=== PATIENT | female | born 1965 | race Caucasian/White ===

== ENCOUNTER → 2021-03-25 12:09 | Outpatient (BNVA) | payer SELFPAY | PROVIDERS: PCP Family Medicine; Visit Provider Nurse Practitioner Family | DX: R41.3 Other amnesia (principal); E66.9 Obesity, unspecified; Z78.0 Asymptomatic menopausal state; F41.0 Panic disorder [episodic paroxysmal anxiety]; F41.9 Anxiety disorder, unspecified; M32.9 Systemic lupus erythematosus, unspecified; B94.8 Sequelae of other specified infectious and parasitic diseases | CPT/HCPCS: 80053; 80061; 82306; 82607; 82746; 83735; 84100; 84443; 85651; 86140 ==

== ENCOUNTER → 2021-07-30 12:02 | Outpatient (BNVA) | payer OTHER, SELFPAY | PROVIDERS: PCP Family Medicine; Visit Provider Nurse Practitioner Family | DX: R41.3 Other amnesia (principal); R70.0 Elevated erythrocyte sedimentation rate; E66.9 Obesity, unspecified; E55.9 Vitamin D deficiency, unspecified; F41.0 Panic disorder [episodic paroxysmal anxiety]; G89.29 Other chronic pain; R79.89 Other specified abnormal findings of blood chemistry; M54.32 Sciatica, left side | CPT/HCPCS: 80053; 80061; 82306; 82607; 83036; 84439; 84443; 84550; 85025; 85651; 86038; 86140; 86200; 86431 ==

== ENCOUNTER 2021-08-19 06:00 | Outpatient (RCR) | payer OTHER, SELFPAY | END 2021-09-07 23:59 | disposition home or self-care (01) | LOC: TPT 06:00 | PROVIDERS: PCP Family Medicine; Referring Provider Nurse Practitioner Family; Visit Provider Nurse Practitioner Family | DX: M54.9 Dorsalgia, unspecified (principal); G89.29 Other chronic pain | CPT/HCPCS: 97110; 97163 ==

== ENCOUNTER 2021-11-17 05:53 | Day surgery (SDC) | payer OTHER, SELFPAY ==
[2021-11-15 12:21] VITALS: BMI 43.9
[2021-11-17 07:00] VITALS: BP 130/85; PULSE 96; RESP 18; TEMP 36.4; O2SAT 97
[2021-11-17] MEDS: sodium chloride 0.9% 1,000 ML 30 ML IV (07:16)
--- NOTE | 2021-11-17 07:37 | ECG_ITS ---
[facility] Test Date: 2021-11-17 Pat Name: Licha Traylor Department: Room: Gender: Female Academic Records Specialist: : [id number] Requested By: Shannon Tran Order Number: [id number] Blackwell MD: Phoebe Sanchez M.D. Measurements Intervals [place] Rate: 74 P: 35 MN: 138 QRS: -17 QRSD: 96 T: 58 QT: 385 QTc: 428 Interpretive Statements SINUS RHYTHM NONSPECIFIC T-WAVE ABNORMALITY No previous ECG available for comparison Electronically Signed On 11-18-2021 18:52:02 CDT by Phoebe Sanchez M.D. [email or web address]
--- NOTE | 2021-11-17 07:53 | ANES.PREANE2 ---
Pre-Anesthetic Assessment Height/Weight: Height 1.52 m Weight 102.058 kg Temp Pulse Resp BP Pulse Ox O2 Del Method 97.5 F L 96 18 130/85 97 11/17/21 07:00 11/17/21 07:00 11/17/21 07:00 11/17/21 07:00 11/17/21 07:00 11/17/21 07:00 Preop Diagnosis: diagnostic Operation Date: 11/17/21 08:00 Proposed Procedures p EGD 61880 Colonoscopy 78661,R19.7(Not Applicable) - Alvarez Kitchen MD s Colonoscopy(Not Applicable) - Alvarez Kitchen MD Familial anesthetic complications: None Was Beta Jacobo taken within 24 hours: N/A Was Clonidine taken within 24 hours: N/A Last intake: Intake Last Liquid Date 11/16/21 Last Liquid Time 18:00 Last Solid Date 11/15/21 Last Solid Time 17:00 Social No alcohol and No tobacco Exam alert, oriented x 3, clear to auscultation bilaterally and regular rate & rhythm Airway Mallampati: Class II Dentition: chipped Pulmonary None reported CV/HEM None reported None reported Hepatic None reported GI None reported Metabolic Morbid Obesity and Thyroid Disease [facility] [place] lupus Neuropsych syncopal episodes - thought by PCP to be d/t hypoglycemia and dehydration. Will obtain EKG to r/o any anemia. Anesthetic Plan ASA status: 3 Anesthesia: MAC Risk of > 500 ml blood loss (7ml/kg in children): No Medications/Allergies Home Medications Medication Instructions Recorded Confirmed Last Taken Type alprazolam 1 mg tablet 1 mg PO BID PRN anxiety #60 tabs 07/30/21 11/17/21 11/16/21 Rx gabapentin 800 mg tablet See Rx Instructions .Route 07/30/21 11/17/21 11/16/21 Rx .COMPLEX #60 tabs memantine 10 mg tablet (Namenda) 10 mg PO BID 30 days #60 tabs 07/30/21 11/17/21 11/15/21 Rx trazodone 100 mg tablet See Rx Instructions .Route 07/30/21 11/17/21 11/16/21 Rx .COMPLEX #30 tabs ergocalciferol (vitamin D2) 1,250 1,250 mcg PO .weekly #4 caps 08/06/21 11/17/21 11/12/21 Rx mcg (50,000 unit) capsule metaxalone 800 mg tablet (Skelaxin) 800 mg PO TID PRN muscle pain 30 08/19/21 11/17/21 11/16/21 Rx days #90 tabs celecoxib 200 mg capsule (Celebrex) 200 mg PO BID #60 caps 09/13/21 11/17/21 11/15/21 Rx dicyclomine 20 mg tablet 20 mg PO QID #120 tabs 09/13/21 11/17/21 11/15/21 Rx sucralfate 1 gram tablet 1 g PO DAILY 11/17/21 11/17/21 11/10/21 History Allergies Allergy/AdvReac Type Severity Reaction Status Date / Time No Known Allergies Allergy Verified 09/13/21 10:24 Current Medications Generic Name Dose Route Start Last Admin Trade Name Freq PRN Reason Stop Dose Admin Sodium Chloride 1,000 mls @ 30 mls/hr 11/17/21 06:15 11/17/21 07:16 Sodium Chloride 0.9% IV 11/18/21 06:14 30 mls/hr .Q24H TERRY Administration PFSH Anesthesia Medical History (Updated 09/13/21 @ 11:14 by Abbie Caballero MD) Anxiety COVID-19 (~09/2020) History of stroke (~01/2020) Lupus Panic attacks 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) PUD (peptic ulcer disease) Surgical History (Updated 08/31/21 @ 10:32 by Alvarez Kitchen MD) History of abdominoplasty History of History of hysterectomy History of laparoscopic cholecystectomy Family History Other CAD (coronary artery disease) Cancer Social History Smoking and tobacco status: never smoked Second hand smoke exposure: No Alcohol intake: never Lives independently: Yes Marital status: service: No Current occupational status: employed Current occupation: [employer] History of recent travel: No Current gender identity: Female Special ashanti needs: No Agree to transfusion: Yes Data Anesthesia Cardiac Studies: No Data to Display
--- NOTE | 2021-11-17 08:10 | W.PM.OPSFHP ---
Same Day Surgery H&P Indication for Procedure/HPI DATE OF PROCEDURE: November 17, 2021 CHIEF COMPLAINT/INDICATIONFOR SURGICAL PROCEDURE: EGD/colonoscopy PREOP DIAGNOSIS: diagnostic PLANNED PROCEDURE: Operation Date: 11/17/21 08:00 Proposed Procedures p EGD 49404 Colonoscopy 10333,R19.7(Not Applicable) - Alvarez Kitchen MD s Colonoscopy(Not Applicable) - Alvarez Kitchen MD Medications/Allergies* Home Medications Medication Instructions Recorded Confirmed Type sucralfate 1 gram tablet 1 g PO DAILY 11/17/21 11/17/21 History Allergies/Adverse Reactions Allergy/AdvReac Type Severity Reaction Status Date / Time No Known Allergies Allergy Verified 09/13/21 10:24 Current Medications: Generic Name Dose Route Start Last Admin Trade Name Freq PRN Reason Stop Dose Admin Sodium Chloride 1,000 mls @ 30 mls/hr 11/17/21 06:15 11/17/21 07:16 Sodium Chloride 0.9% IV 11/18/21 06:14 30 mls/hr .Q24H TERRY Administration Pertinent History/Comorbid Conditions* Medical History (Updated 09/13/21 @ 11:14 by Abbie Caballero MD) Anxiety COVID-19 (~09/2020) History of stroke (~01/2020) Lupus Panic attacks 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) PUD (peptic ulcer disease) Surgical History (Updated 08/31/21 @ 10:32 by Alvarez Kitchen MD) History of abdominoplasty History of History of hysterectomy History of laparoscopic cholecystectomy Family History (Updated 10/15/20 @ 13:37 by Julianna Rose LPN) CAD (coronary artery disease) Cancer Social History Smoking and tobacco status: never smoked Second hand smoke exposure: No Alcohol intake: never Lives independently: Yes Marital status: service: No Current occupational status: employed Current occupation: [employer] History of recent travel: No Current gender identity: Female Special ashanti needs: No Agree to transfusion: Yes Pertinent Exam Findings alert, oriented x 3 and regular rate & rhythm Recommendations Surgery/Procedure today Coding Level of Care Code Acute Dental Claims Processor for Alissa Cedillo
[2021-11-17 08:52] VITALS: BP 112/75; PULSE 82; RESP 16; TEMP 36.1; O2SAT 94
[2021-11-17 09:04] VITALS: BP 127/78; PULSE 73; RESP 16; O2SAT 98
[2021-11-17] MEDS: ondansetron 2 mg/ML SDV 2 mL 4 MG IVP (09:10)
--- NOTE | 2021-11-17 17:53 | ANE.PACU2 ---
Inpatient post-anesthesia follow up: Airway intact: Yes Vital signs: Temperature 97.0 F Pulse Rate 73 Respiratory Rate 16 Blood Pressure 127/78 Pulse Oximetry 98 Oxygen Delivery Me thod Nasal Cannula Oxygen Flow Rate 3 Fraction of Inspir ed Oxygen Hydration adequate: Yes Nausea and vomiting: No Pain level: 1 Mental status: Baseline
== END 2021-11-17 09:45 | disposition home or self-care (01) ==
PROVIDERS: PCP Family Medicine; Visit Provider Surgery
PROC: 0DJ08ZZ Inspection of Upper Intestinal Tract, Via Natural or Artificial Opening Endoscopic (ICD-10-PCS; CPT 43235; principal; 2021-11-17 08:00)
PROC: 0DJD8ZZ Inspection of Lower Intestinal Tract, Via Natural or Artificial Opening Endoscopic (ICD-10-PCS; CPT 45378; 2021-11-17 08:00)
DX: R19.7 Diarrhea, unspecified (principal); K29.50 Unspecified chronic gastritis without bleeding; K57.30 Diverticulosis of large intestine without perforation or abscess without bleeding; K64.8 Other hemorrhoids; E66.01 Morbid (severe) obesity due to excess calories; Z68.41 Body mass index [BMI] 40.0-44.9, adult; F41.9 Anxiety disorder, unspecified; Z87.11 Personal history of peptic ulcer disease; Z86.73 Personal history of transient ischemic attack (TIA), and cerebral infarction without residual deficits; Z86.16 Personal history of COVID-19
CPT/HCPCS: 43239; 45380; 82274; 83630; 87493; 87506; 88305; 88342; 93005; J2405; J2704; J7030

== ENCOUNTER → 2022-03-11 08:52 | Outpatient (BNVA) | payer OTHER, SELFPAY | PROVIDERS: PCP Family Medicine; Visit Provider Family Medicine | DX: R05.9 Cough, unspecified (principal) | CPT/HCPCS: 87400 ==

== ENCOUNTER → 2022-06-15 15:22 | Outpatient (BNVA) | payer OTHER, SELFPAY | PROVIDERS: PCP Family Medicine; Visit Provider Family Medicine | DX: N39.0 Urinary tract infection, site not specified (principal) | CPT/HCPCS: 81000 ==

== ENCOUNTER → 2022-07-14 13:23 | Outpatient (BNVA) | payer OTHER, SELFPAY | PROVIDERS: PCP Family Medicine; Visit Provider Family Medicine | DX: R10.9 Unspecified abdominal pain (principal); R19.7 Diarrhea, unspecified | CPT/HCPCS: 82274; 87177; 87209; 87493; 87506 ==

== ENCOUNTER 2022-09-23 14:01 | Emergency (ER) | payer OTHER, SELFPAY ==
[2022-09-23] VITALS (14 sets, daily range): BP systolic 112–152; BP diastolic 74–110; PULSE 60–102; RESP 11–25; TEMP 36.8; O2SAT 86–99
[2022-09-23 15:08] LABS: Add Urine Microscopic? NO; Charge for UA Resulting for Rev
[2022-09-23 15:18] LABS: Bilirubin Urine Neg (Negative); Blood Urine Neg (Negative); Glucose Urine UA Norm (Normal); Ketones Urine 1+ (Negative); Leukocyte Esterase Urine Negative (Negative); Nitrate Urine Negative (Negative); Protein Urine Neg (Negative); Specific Gravity, Urine 1.015 (1.005-1.030); Urine Appearance Clear (CLEAR); Urine Color Yellow (Yellow); Urobilinogen Urine Norm (Negative); pH Urine 6 (5-7)
[2022-09-23 15:21] LABS: Basophils % 0.4 %; Eosinophils % 0.7 %; Hematocrit 40.7 % (37.0-47.0); Hemoglobin 14.1 g/dL (11.5-15.3); Lymphocytes # 2.4 10^3/uL (0.8-4.8); Lymphocytes % 43.4 %; Mean Corpuscular HGB Conc 34.6 g/dL (30.0-36.0); Mean Corpuscular Hemoglobin 31.3 pg (28.0-34.0); Mean Corpuscular Volume 90.2 fl (81-99); Mean Platelet Volume 9.5 fL (7.4-10.4); Monocytes # 0.5 10^3/uL (0.2-0.9); Monocytes % 8.1 %; Neutrophils # 2.61 10^3/uL (1.8-7.7); Neutrophils % 47.2 %; Nucleated Red Blood Cells % 0 %; Platelet Count 261 10^3/cmm (130-400); Red Blood Count 4.51 10^6/uL (4.1-5.3); White Blood Count 5.5 10^3/uL (4.0-10.0)
[2022-09-23 15:38] LABS: Anion Gap 18.1 (5-19); Blood Urea Nitrogen 4 mg/dL (6-20); Calcium 9.7 mg/dL (8.5-10.5); Carbon Dioxide 26 mmol/L (22-29); Chloride 95 mmol/L (98-107); Creatinine Clr Calc Pharmacy 78.3281; Glomerular Filtration Rate 73.9 mL/min (90-130); Glucose 100 mg/dL (65-115); Osmolality Calculated 279 mOsm/kg (285-295); Potassium 3.1 mmol/L (3.5-5.1); Sodium 136 mmol/L (136-145)
--- NOTE | 2022-09-23 16:36 | CTR_ITS ---
PROCEDURE INFORMATION: Exam: CT Abdomen And Pelvis With Contrast Exam date and time: 09/23/2022 5:24 PM Age: 56 years old Clinical indication: Abdominal pain; Localized; Right lower quadrant (rlq); Prior surgery; Surgery date: 6+ months; Surgery type: Appy, gb; Additional info: Rlq pain, acute on chronic rlq pain. PT with 5 prior abdominal TECHNIQUE: Imaging protocol: Computed tomography of the abdomen and pelvis with contrast. Radiation optimization: All CT scans at this facility use at least one of these dose optimization techniques: automated exposure control; mA and/or kV adjustment per patient size (includes targeted exams where dose is matched to clinical indication); or iterative reconstruction. Contrast material: OMNI 350; Contrast volume: 100 ml; Contrast route: INTRAVENOUS (IV); REPORTING DATA: Count of CT and Cardiac NM exams in prior 12 months: This patient has received 0 known CTs and 0 known cardiac nuclear medicine studies in the 12 months prior to the current study. COMPARISON: No relevant prior studies available. RADIATION DOSE METRICS: Total DLP (mGy-cm): 902.23 FINDINGS: Lungs: Left lower lobe calcified granuloma. Liver: Normal. No mass. Gallbladder and bile ducts: Cholecystectomy. The bile ducts are normal. Pancreas: Normal. No ductal dilation. Spleen: Calcified granuloma in the spleen. Adrenal glands: Normal. No mass. Kidneys and ureters: Hypodensity in the left kidney is too small to characterize but is most likely a cyst. No follow-up imaging is recommended. The kidneys are otherwise unremarkable. No calculus or hydronephrosis. Stomach and bowel: Mild diverticulosis of the distal colon. No diverticulitis. The stomach and small bowel are unremarkable. No wall thickening or obstruction. Appendix: The appendix is visualized and is normal. Intraperitoneal space: Unremarkable. No free air. No significant fluid collection. Vasculature: Unremarkable. No abdominal aortic aneurysm. Lymph nodes: Calcified left hilar lymph nodes. Urinary bladder: Unremarkable as visualized. Reproductive: The uterus and ovaries are absent. Bones/joints: Degenerative changes of the spine. No acute fracture. Soft tissues: Fat containing umbilical hernia. Soft tissue calcifications in the left flank. CT/CT abdomen pelvis w con* [id number] IMPRESSION: No acute findings. COMMENTS: Consistent with the [employer] [place] [employer]'s Incidental Findings Committee white paper (J Am Elizabeth Radiol 2018): Any incidental renal lesion less than 1 cm or classified as too small to characterize, or any incidental cystic renal lesion characterized as simple-appearing, is likely benign. No follow-up imaging is recommended for these lesions per consensus recommendations based on imaging criteria.
--- NOTE | 2022-09-23 16:41 | ED_ITS ---
HPI - Abdominal Pain General: Chief Complaint: Abdominal Pain Stated Complaint: Abd pain Time Seen by Provider: 09/23/22 15:48 Source: patient Mode of arrival: ambulatory Limitations: no limitations History of Present Illness: Patient presents emergency department today for acute on chronic right lower abdominal pain. Patient states pain started about 6 months ago but, has continued to progress into more frequent episodes and worsening episodes of pain. Patient reports nausea without vomiting but, does not notice that oral intake makes her pain any worse. She reports chronic diarrhea without any recent change in bowel habits. It appears patient has seen her primary care doctor several times for this as well as the emergency department. She has been seen at outside facilities without ability to review these charts. She also states she has had a couple of CT scans but, I do not see any CT results in her chart at this time. Patient states she was referred to GI by her primary care doctor but, the referrals were going to a pool and were not being scheduled. She states she is now supposed to be seeing GI but is not for another month or more. Patient was most recently seen 3 days ago by her primary care doctor where it appears she has referred her to general surgery for exploratory laparotomy secondary to concerns for adhesions. Patient has had approximately 5 abdominal surgeries. She has a large scar over her right lower quadrant extending towards the flank where she has profuse tenderness with even light touch on exam. Patient reports pain so severe she cannot even get up to stand and walk. Patient states she receives tramadol from her doctor as the doctors ARAVIND has some sort of issue at this time-per patient. However, tramadol does not help her pain. 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) PUD (peptic ulcer disease) Surgical History History of abdominoplasty History of History of hysterectomy History of laparoscopic cholecystectomy Family History Other CAD (coronary artery disease) Cancer Social History Smoking and tobacco status: never smoked Second hand smoke exposure: No Alcohol intake: never Substance/Drug Use: current Other substance/drug use details: has [place] medical card Lives independently: Yes Marital status: service: No Current occupational status: employed Current occupation: [employer] Current gender identity: Female Special ashanti needs: No Agree to transfusion: Yes Physical Exam Const: COMMON NORMALS: no acute distress, patient oriented x3 and alert HENMT: COMMON NORMALS: normocephalic, atraumatic, hearing grossly normal bilaterally and moist oral mucous membranes HEAD & SCALP: normocephalic and atraumatic Eye: COMMON NORMALS: Equal, round and reactive pupils present, EOMs intact bilaterally and conjunctivae normal CONJUNCTIVA: Yes conjunctivae normal PUPIL: Yes Equal, round and reactive pupils present Neck/C-Spine: COMMON NORMALS: full ROM and no JVD Lymph: LYMPHATIC: no lymphadenopathy noted Resp: COMMON NORMALS: normal respiratory effort, No retractions, No use of accessory muscles and clear to auscultation bilaterally AUSCULTATION: clear to auscultation bilaterally Cardio: COMMON NORMALS: no JVD, regular rate and regular rhythm RATE: regular rate RHYTHM: regular rhythm GI: OTHER: Patient is profusely tender to even light touch in the right lower quadrant region. Abdomen was soft with active bowel sounds present. : COMMON NORMALS: Yes no CVA tenderness BLADDER/KIDNEY EXAM: Yes no CVA tenderness Back/Pelvis: COMMON NORMALS: no CVA tenderness, no thoracic nor lumbar tenderness and thoraco-lumbar ROM normal Extremity: COMMON NORMALS: normal to inspection, full ROM and capillary refill normal Neuro: COMMON NORMALS: patient oriented x3 SENSORIUM/ORIENTATION: Yes alert Psych: COMMON NORMALS: mental status grossly normal, Normal thought process present, cooperative, normal affect and activity/motor behavior normal THOUGHT PROCESS: Normal thought process present Skin: COMMON NORMALS: no rashes or lesions noted and no wounds NARRATIVE SKIN EXAM: Patient has a large linear postsurgical scar noted across her right lower abdomen approximately 15 cm in length. GENERAL SKIN EXAM: no rashes or lesions noted Course Vital Signs: Vital signs: Vital Signs Temperature 98.2 F 09/23/22 19:07 Pulse Rate 66 09/23/22 19:07 Respiratory Rate 12 09/23/22 19:07 Blood Pressure 115/74 09/23/22 19:07 Pulse Oximetry 90 09/23/22 19:07 Oxygen Delivery Me thod Room Air 09/23/22 17:41 MDM - Abdominal Pain Medical Decision Making Patient's lab work today is generally unremarkable. She has had issues with pain in this area for quite some time. It does appear that she is scheduled to see gastroenterology and is also scheduled to have an exploratory lap on Monday. Patient CT examination does reveal some nonspecific abnormalities to the right lower quadrant colon region which could be secondary to some adhesions but, there are no signs of any strangulated bowel or obstruction. Patient had improvement with pain medication here in the ER. We discussed need for c ontinued evaluation and importance of her having her procedure on Monday given her recurrence of pain in this area. We did offer Soldier to the patient however, she states it makes her angry and indicates she would prefer Toradol. Toradol was provided. We went over return precautions for any worsening through the weekend. Patient verbalized understanding and agreement to treatment plan. Differential Diagnosis Likely abdominal pain, acute appendicitis, constipation, diverticulitis and small bowel obstruction Lab Data 09/23/22 15:08 09/23/22 15:08 Labs/Radiology: Radiology Impressions Abdomen/Pelvis CT 09/23/22 16:36 IMPRESSION: No acute findings. COMMENTS: Consistent with the [place] [employer]'s Incidental Findings Committee white paper (J Am Elizabeth Radiol 2018): Any incidental renal lesion less than 1 cm or classified as too small to characterize, or any incidental cystic renal lesion characterized as simple-appearing, is likely benign. No follow-up imaging is recommended for these lesions per consensus recommendations based on imaging criteria. Laboratory Results WBC 5.5 10^3/uL (4.0-10.0) 09/23/22 15:08 RBC 4.51 10^6/uL (4.1-5.3) 09/23/22 15:08 Hgb 14.1 g/dL (11.5-15.3) 09/23/22 15:08 Hct 40.7 % (37.0-47.0) 09/23/22 15:08 MCV 90.2 fl (81-99) 09/23/22 15:08 MCH 31.3 pg (28.0-34.0) 09/23/22 15:08 MCHC 34.6 g/dL (30.0-36.0) 09/23/22 15:08 RDW 13.0 % (12.1-15.1) 09/23/22 15:08 Plt Count 261 10^3/cmm (130-400) 09/23/22 15:08 MPV 9.5 fL (7.4-10.4) 09/23/22 15:08 Neut % (Auto) 47.2 % 09/23/22 15:08 Lymph % (Auto) 43.4 % 09/23/22 15:08 [place] % (Auto) 8.1 % 09/23/22 15:08 Eos % (Auto) 0.7 % 09/23/22 15:08 Baso % (Auto) 0.4 % 09/23/22 15:08 Neut # (Auto) 2.61 10^3/uL (1.8-7.7) 09/23/22 15:08 Lymph # (Auto) 2.4 10^3/uL (0.8-4.8) 09/23/22 15:08 [place] # (Auto) 0.5 10^3/uL (0.2-0.9) 09/23/22 15:08 Eos # (Auto) 0.0 10^3/uL (0.0-0.8) 09/23/22 15:08 Baso # (Auto) 0.0 10^3/uL (0.0-0.1) 09/23/22 15:08 Nucleated RBC % (auto) 0 % 09/23/22 15:08 Nucleated RBCs # 0.0 /100WBC 09/23/22 15:08 Sodium 136 mmol/L (136-145) 09/23/22 15:08 Potassium 3.1 mmol/L (3.5-5.1) L 09/23/22 15:08 Chloride 95 mmol/L (98-107) L 09/23/22 15:08 Carbon Dioxide 26 mmol/L (22-29) 09/23/22 15:08 Anion Gap 18.1 (5-19) 09/23/22 15:08 BUN 4 mg/dL (6-20) L 09/23/22 15:08 Creatinine 0.8 mg/dL (0.5-0.9) 09/23/22 15:08 GFR Calculation 73.9 mL/min (90-130) L 09/23/22 15:08 Glucose 100 mg/dL (65-115) 09/23/22 15:08 Calculated Osmolality 279 mOsm/kg (285-295) L 09/23/22 15:08 Calcium 9.7 mg/dL (8.5-10.5) 09/23/22 15:08 Urine Color Yellow (Yellow) 09/23/22 14:55 Urine Appearance Clear (CLEAR) 09/23/22 14:55 Urine pH 6 (5-7) 09/23/22 14:55 Ur Specific [place] 1.015 (1.005-1.030) 09/23/22 14:55 Urine Protein Neg (Negative) 09/23/22 14:55 Urine Glucose (UA) Norm (Normal) 09/23/22 14:55 Urine Ketones 1+ (Negative) H 09/23/22 14:55 Urine Blood Neg (Negative) 09/23/22 14:55 Urine Nitrate Negative (Negative) 09/23/22 14:55 Urine Bilirubin Neg (Negative) 09/23/22 14:55 Urine Urobilinogen Norm mg/dL (Negative) 09/23/22 14:55 Ur Leukocyte Esterase Negative (Negative) 09/23/22 14:55 Discharge Plan Discharge Patient Disposition: Home Clinical Impression: Abdominal pain, right lower quadrant Condition: Stable Prescriptions: New ketorolac 10 mg tablet 10 mg PO Q8H 5 Days Qty: 15 0RF No Action memantine [Namenda] 10 mg tablet 10 mg PO BID 30 Days Qty: 60 2RF pregabalin [Lyrica] 150 mg capsule 150 mg PO TID Qty: 90 2RF lamotrigine [Lamictal] 100 mg tablet 100 mg PO BID Qty: 60 3RF Rx Instructions: 1/2 tab twice a day for 2 weeks then 1 tab twice a day mupirocin 2 % ointment 1 applic topical BID Qty: 22 0RF celecoxib [Celebrex] 200 mg capsule 200 mg PO BID Qty: 60 3RF trazodone 100 mg tablet See Rx Instructions .ROUTE .COMPLEX Qty: 30 2RF Dose Instruction: TAKE 1 TABLET BY MOUTH AT BEDTIME Rx Instructions: TAKE 1 TABLET BY MOUTH AT BEDTIME lorazepam 1 mg tablet 1 mg PO BID Qty: 60 2RF ergocalciferol (vitamin D2) 1,250 mcg (50,000 unit) capsule 1,250 mcg PO .weekly Qty: 4 2RF sucralfate 1 gram tablet 1 g PO DAILY Qty: 30 3RF Rx Instructions: TAKE ONE TABLET BY MOUTH THREE TIMES DAILY lidocaine [Lidoderm] 5 % adhesive patch,medicated 1 patch topical DAILY Qty: 30 3RF Rx Instructions: leave on most painful area for up to 12 hrs tramadol 50 mg tablet 50 mg PO Q8H PRN (Reason: pain) Qty: 90 0RF Discharge Orders: Discharge ED (Routine); Ordered 09/23/22 Ordered By: Renetta Way Referrals: Abbie Caballero MD [Primary Care Provider] - Discharge Diet: Advance as tolerated Discharge Activity: Increase activity as tolerated Patient Instructions: Abdominal Pain (ED), Opioid Safety Activity Restrictions/Additional Instructions: Lab work today showed no signs of any acute infection. The scan of your abdomen is suspicious for adhesions in your area of discomfort however, does not appear to be causing any type of bowel obstruction. The CT was read negative by the radiologist for any acute concerns and, I had the emergency room physician here today provide a second opinion. He also agrees that you most likely are having some postoperative complications in this area but, acutely there is no signs of any bowel or strangulation in this area. He has agreed to provide you a prescription for pain medication stronger than the tramadol you have at home. It is very important that you keep your upcoming appointments and surgical date on Monday. Coding Level of Care Code ED Tile Inspector for Alissa Cedillo
[2022-09-23] MEDS: ondansetron 2 mg/ML SDV 2 mL 4 MG IVP (17:18)
[2022-09-23] MEDS: morphine 4 mg/mL SDV 1 mL IVP (17:18)
[2022-09-23] MEDS: iohexol 350 mg/mL 500 mL Btl (per mL) IV (17:29)
== END 2022-09-23 19:08 | disposition home or self-care (01) ==
PROVIDERS: Emergency Medicine; Emergency Provider Physician Assistant; PCP Family Medicine
DX: R10.31 Right lower quadrant pain (principal); Z86.73 Personal history of transient ischemic attack (TIA), and cerebral infarction without residual deficits; M32.9 Systemic lupus erythematosus, unspecified
CPT/HCPCS: 36415; 74177; 80048; 81003; 85025; 96374; 96375; 99285; J2270; J2405; Q9967

== ENCOUNTER 2022-09-27 11:33 | Emergency (ER) | payer OTHER, SELFPAY ==
[2022-09-27 11:50] VITALS: BP 132/91; PULSE 61; RESP 18; TEMP 36.6; O2SAT 98
--- NOTE | 2022-09-27 12:23 | ED_ITS ---
HPI - Back Pain/Injury General: Chief Complaint: Back Pain/Injury Stated Complaint: low back pain sent by em/Jose Maria Time Seen by Provider: 09/27/22 12:03 Source: patient Mode of arrival: EMS History of Present Illness: 56-year-old female presents emergency room complaining of back pain with pain radiating to her right leg. This has been going on for nearly 2 years she has a first visit for it in the chart in October 2020. She had been seen for abdominal pain recently and was referred to Dr. Jose Maria Moise was concerned she may need to be evaluated for cauda equina and referred her to the emergency room. She has not previously had any advanced imaging of her back. No recent trauma or fall. She has had some urinary incontinence but no fecal incontinence no urinary retention no dysuria urgency or frequency no trauma to the back. MD elicited complaint: back pain Pertinent past history: prior back pain Onset (ago): month(s) Timing: constant Severity: severe Similar Symptoms Previously: Yes Quality: sharp Location: lumbar spine Radiation: abdomen and groin (Right) Exacerbating factors: movement and other (Palpation) Relieving factors: supine Associated symptoms: Reports difficulty walking; Deny abdominal pain, arthralgias, chills, change in bowel habits, dysuria, fa tigue, fecal incontinence, fever(s), hematuria, myalgias, nausea, numbness, syncope, tingling/numbness/burning, urinary frequency, urinary urgency, vomiting or weakness Review of Systems Const: Denies: fever(s), chills or fatigue ENMT: Denies: throat pain, ear or mastoid pain, nasal discharge or nasal congestion Card: Denies: chest pain or syncope Resp: Denies: dyspnea, productive cough or non-productive cough GI: Denies: abdominal pain, nausea, vomiting, fecal incontinence or change in bowel habits : Reports: urinary incontinence; Denies: dysuria, urinary frequency, urinary urgency or hematuria Musc: Reports: back pain and extremity pain Skin/Breast: Denies: rash or pruritus Neuro: Reports: numbness in extremities (Residual from previous stroke) and difficulty walking [facility] ED PFSH: Medical History Anxiety COVID-19 (~09/2020) History of stroke (~01/2020) Lupus Panic attacks 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) PUD (peptic ulcer disease) Surgical History History of abdominoplasty History of History of hysterectomy History of laparoscopic cholecystectomy Family History Other CAD (coronary artery disease) Cancer Social History Smoking and tobacco status: never smoked Second hand smoke exposure: No Alcohol intake: never Substance/Drug Use: current Other substance/drug use details: has [place] medical card Lives independently: Yes Marital status: service: No Current occupational status: employed Current occupation: [employer] Current gender identity: Female Special ashanti needs: No Agree to transfusion: Yes Physical Exam Const: GENERAL APPEARANCE: cooperative and comfortable ORIENTATION/CONSCIOUSNESS: Yes awake, Yes oriented to person, Yes oriented to place and Yes oriented to time HENMT: COMMON NORMALS: normocephalic, atraumatic and hearing grossly normal bilaterally HEAD & SCALP: normocephalic and atraumatic Resp: COMMON NORMALS: normal respiratory effort, No retractions, No use of accessory muscles and clear to auscultation bilaterally AUSCULTATION: clear to auscultation bilaterally Cardio: COMMON NORMALS: regular rate, regular rhythm and No murmurs present (Cardio) RATE: regular rate RHYTHM: regular rhythm GI: COMMON NORMALS: Soft to palpation and No hepatosplenomegaly present AUSCULTATION: Yes normoactive bowel sounds PALPATION: Yes Soft to palpation, No Tenderness to palpation present (GI), No Guarding due to palpation present (GI) and Yes No hepatosplenomegaly present OTHER: Exquisite tenderness light touch right lower quadrant and right groin region : COMMON NORMALS: Yes no CVA tenderness BLADDER/KIDNEY EXAM: Yes no CVA tenderness Back/Pelvis: COMMON NORMALS: no CVA tenderness Extremity: COMMON NORMALS: normal to inspection, capillary refill normal, no clubbing, cyanosis or edema, no calf tenderness and no pedal edema Neuro: SENSORIUM/ORIENTATION: Yes oriented to person, Yes oriented to place and Yes oriented to time OTHER: Tatian to sharp touch in the right leg compared to the left. Weakness with extension of the right great toe. Patient relates this is residual from her previous stroke. Dorsal plantarflexion strength at the ankle is 5/5. Straight leg raising patient complains of pain in the right lower quadrant and back region. Skin: COMMON NORMALS: no rashes or lesions noted GENERAL SKIN EXAM: no rashes or lesions noted Course Vital Signs: Vital signs: Vital Signs Temperature 97.8 F 09/27/22 14:43 Pulse Rate 59 L 09/27/22 14:43 Respiratory Rate 16 09/27/22 14:43 Blood Pressure 110/78 09/27/22 14:43 Pulse Oximetry 97 09/27/22 14:43 Oxygen Delivery Me thod Room Air 09/27/22 12:58 MDM - Back Pain/Injury Medical Decision Making Exam is not remarkable for cauda equina syndrome at this time.. I think she does have some radicular leg symptoms or do not believe she has cauda equina. On ultrasound she only has 52 mL in her bladder with complaint of urgency at this time to urinate. And not believe she is getting overflow incontinence from urinary retention she has not had any fecal incontinence. The symptoms have been going on for several months maybe as long as [address] flores and given these findings he does not feel there is a cauda equina syndrome recommends that we refer her back to his clinic today and they will see her there. Differential Diagnosis Likely lumbar radiculopathy, sciatica and strain of lumbar region Medical Records I reviewed the patient's medical records. Labs I reviewed the patient's lab results. 09/27/22 12:33 09/27/22 12:33 Laboratory Results WBC 4.0 10^3/uL (4.0-10.0) 09/27/22 12:33 RBC 4.55 10^6/uL (4.1-5.3) 09/27/22 12:33 Hgb 13.9 g/dL (11.5-15.3) 09/27/22 12:33 Hct 40.8 % (37.0-47.0) 09/27/22 12:33 MCV 89.7 fl (81-99) 09/27/22 12:33 MCH 30.5 pg (28.0-34.0) 09/27/22 12:33 MCHC 34.1 g/dL (30.0-36.0) 09/27/22 12:33 RDW 12.9 % (12.1-15.1) 09/27/22 12:33 Plt Count 234 10^3/cmm (130-400) 09/27/22 12:33 MPV 9.6 fL (7.4-10.4) 09/27/22 12:33 Neut % (Auto) 54.8 % 09/27/22 12:33 Lymph % (Auto) 35.3 % 09/27/22 12:33 Mccreary % (Auto) 8.3 % 09/27/22 12:33 Eos % (Auto) 0.8 % 09/27/22 12:33 Baso % (Auto) 0.5 % 09/27/22 12: Neut # (Auto) 2.20 10^3/uL (1.8-7.7) 09/27/22 12:33 Lymph # (Auto) 1.4 10^3/uL (0.8-4.8) 09/27/22 12:33 Mccreary # (Auto) 0.3 10^3/uL (0.2-0.9) 09/27/22 12:33 Eos # (Auto) 0.0 10^3/uL (0.0-0.8) 09/27/22 12:33 Baso # (Auto) 0.0 10^3/uL (0.0-0.1) 09/27/22 12:33 Nucleated RBC % (auto) 0 % 09/27/22 12: Nucleated RBCs # 0.0 /100WBC 09/27/22 12:33 Sodium 140 mmol/L (136-145) 09/27/22 12:33 Potassium 3.3 mmol/L (3.5-5.1) L 09/27/22 12:33 Chloride 99 mmol/L (98-107) 09/27/22 12:33 Carbon Dioxide 27 mmol/L (22-29) 09/27/22 12:33 Anion Gap 17.3 (5-19) 09/27/22 12:33 BUN 6 mg/dL (6-20) 09/27/22 12:33 Creatinine 1.0 mg/dL (0.5-0.9) H 09/27/22 12:33 GFR Calculation 57.1 mL/min (90-130) L 09/27/22 12:33 Glucose 99 mg/dL (65-115) 09/27/22 12:33 Calculated Osmolality 288 mOsm/kg (285-295) 09/27/22 12:33 Calcium 9.4 mg/dL (8.5-10.5) 09/27/22 12:33 Total Bilirubin 0.7 mg/dL (0.15-1.2) 09/27/22 12:33 AST 26 U/L (0-32) 09/27/22 12:33 ALT 24 U/L (0-33) 09/27/22 12:33 Alkaline Phosphatase 67 U/L (35-105) 09/27/22 12:33 Total Protein 7.1 g/dL (6.6-8.7) 09/27/22 12:33 Albumin 4.2 g/dL (3.5-5.2) 09/27/22 12:33 Globulin 2.9 g/dL (1.3-4.6) 09/27/22 12:33 Urine Color Yellow (Yellow) 09/27/22 13:13 Urine Appearance Clear (CLEAR) 09/27/22 13:13 Urine pH 7 (5-7) 09/27/22 13:13 Ur Specific [place] 1.010 (1.005-1.030) 09/27/22 13:13 Urine Protein Neg (Negative) 09/27/22 13:13 Urine Glucose (UA) Norm (Normal) 09/27/22 13:13 Urine Ketones Negative (Negative) 09/27/22 13:13 Urine Blood Neg (Negative) 09/27/22 13:13 Urine Nitrate Negative (Negative) 09/27/22 13:13 Urine Bilirubin Neg (Negative) 09/27/22 13:13 Urine Urobilinogen Norm mg/dL (Negative) 09/27/22 13:13 Ur Leukocyte Esterase Negative (Negative) 09/27/22 13:13 Discharge Plan Discharge Patient Disposition: Home Clinical Impression: Lumbar radiculopathy Condition: Stable Prescriptions: New tizanidine 4 mg tablet 4 mg PO Q6H PRN (Reason: muscle spasticity) Qty: 20 0RF Rx Instructions: do not exceed 3 doses per 24 hrs prednisone 20 mg tablet 20 mg PO TID Qty: 15 0RF Rx Instructions: 1 p.o. 3 times daily x3 days, 1 p.o. twice daily x2 days, 1 p.o. daily x2 days diclofenac sodium 75 mg tablet,delayed release (DR/EC) 75 mg PO Q12H PRN (Reason: pain) Qty: 20 0RF No Action pregabalin [Lyrica] 150 mg capsule 150 mg PO TID Qty: 90 2RF diazepam [Valium] 5 mg tablet 5 mg PO TID PRN (Reason: muscle spasm) 7 Days Qty: 21 0RF tramadol 50 mg tablet 50 mg PO Q8H PRN (Reason: pain) Qty: 90 0RF lorazepam 0.5 mg tablet 1 mg PO BID ergocalciferol (vitamin D2) 1,250 mcg (50,000 unit) capsule 1,250 mcg PO Q7D lamotrigine [Lamictal] 100 mg tablet See Rx Instructions .ROUTE .COMPLEX Rx Instructions: (not started as of 09/27/22) 1/2 tab twice a day for 2 weeks then 1 tab twice a day ondansetron 8 mg tablet,disintegrating 8 mg PO Q6H PRN (Reason: Nausea And Vomiting) gabapentin 800 mg Tablet 800 mg PO DAILY@12 hydrocodone-acetaminophen 7.5-325 mg tablet 1 tab PO Q4H PRN (Reason: Pain) sucralfate 1 gram tablet 1 g PO TID trazodone 100 mg tablet 100 mg PO BEDTIME pantoprazole 40 mg tablet,delayed release (DR/EC) 40 mg PO BID Discharge Orders: Discharge ED (Routine); Ordered 09/27/22 Ordered By: Christopher Reveles Referrals: Abbie Caballero MD [Primary Care Provider] - Discharge Diet: Usual diet Discharge Activity: Limit activity as instructed Patient Instructions: Lumbar Radiculopathy (ED), Opioid Safety, Pain Management Coding Level of Care Code ED [employer]person [employer] for Alissa Cedillo
[2022-09-27 12:49] LABS: Basophils % 0.5 %; Eosinophils % 0.8 %; Hematocrit 40.8 % (37.0-47.0); Hemoglobin 13.9 g/dL (11.5-15.3); Lymphocytes # 1.4 10^3/uL (0.8-4.8); Lymphocytes % 35.3 %; Mean Corpuscular HGB Conc 34.1 g/dL (30.0-36.0); Mean Corpuscular Hemoglobin 30.5 pg (28.0-34.0); Mean Corpuscular Volume 89.7 fl (81-99); Mean Platelet Volume 9.6 fL (7.4-10.4); Monocytes # 0.3 10^3/uL (0.2-0.9); Monocytes % 8.3 %; Neutrophils % 54.8 %; Nucleated Red Blood Cells % 0 %; Platelet Count 234 10^3/cmm (130-400); Red Blood Count 4.55 10^6/uL (4.1-5.3); Red Cell Distribution Width 12.9 % (12.1-15.1)
--- NOTE | 2022-09-27 12:50 | PC.NURSE ---
took over care of this patient
[2022-09-27 12:58] VITALS: BP 143/113; PULSE 71; RESP 16; O2SAT 99
--- NOTE | 2022-09-27 12:59 | PC.NURSE ---
TURNED OVER CARE AVTAR RN AT [id number]
[2022-09-27 13:00] VITALS: PULSE 63; RESP 18; O2SAT 100
[2022-09-27 13:06] LABS: Alanine Aminotransferase 24 U/L (0-33); Albumin Level 4.2 g/dL (3.5-5.2); Alkaline Phosphatase 67 U/L (35-105); Anion Gap 17.3 (5-19); Aspartate Amino Transferase 26 U/L (0-32); Blood Urea Nitrogen 6 mg/dL (6-20); Calcium 9.4 mg/dL (8.5-10.5); Carbon Dioxide 27 mmol/L (22-29); Chloride 99 mmol/L (98-107); Globulin 2.9 g/dL (1.3-4.6); Glomerular Filtration Rate 57.1 mL/min (90-130); Glucose 99 mg/dL (65-115); Osmolality Calculated 288 mOsm/kg (285-295); Potassium 3.3 mmol/L (3.5-5.1); Sodium 140 mmol/L (136-145); Total Bilirubin 0.7 mg/dL (0.15-1.2); Total Protein 7.1 g/dL (6.6-8.7)
[2022-09-27] MEDS: dexamethasone 10 mg/mL INJ IVP (13:17)
[2022-09-27] MEDS: tizanidine 4 mg Tablet PO (13:17)
[2022-09-27 13:18] VITALS: RESP 16
[2022-09-27] MEDS: morphine 4 mg/mL SDV 1 mL IVP (13:18)
[2022-09-27] MEDS: ketorolac 30 mg/mL INJ IVP (13:20)
[2022-09-27 13:21] LABS: Add Urine Microscopic? NO; Charge for UA Resulting for Rev
[2022-09-27 13:26] LABS: Bilirubin Urine Neg (Negative); Blood Urine Neg (Negative); Glucose Urine UA Norm (Normal); Ketones Urine Negative (Negative); Leukocyte Esterase Urine Negative (Negative); Nitrate Urine Negative (Negative); Protein Urine Neg (Negative); Urine Appearance Clear (CLEAR); Urine Color Yellow (Yellow); Urobilinogen Urine Norm (Negative); pH Urine 7 (5-7)
[2022-09-27] MEDS: ondansetron 2 mg/ML SDV 2 mL 4 MG IVP (13:27)
[2022-09-27 13:30] VITALS: PULSE 75; RESP 18; O2SAT 100
--- NOTE | 2022-09-27 14:07 | PC.PHAR ---
pt states she takes care of her own medication-pt states she has a build up of gabapentin 800mg and is still taking 800mg daily chris quijano ar states last filled 10/12/2021 30d/s 800mg bid [facility] last filled september 2021 30d/s 800mg bid-notes are made in the pharmacy comments
[2022-09-27 14:43] VITALS: BP 110/78; PULSE 59; RESP 16; TEMP 36.6; O2SAT 97
== END 2022-09-27 14:51 | disposition home or self-care (01) ==
PROVIDERS: Emergency Provider Family Medicine; PCP Family Medicine
DX: M54.16 Radiculopathy, lumbar region (principal); Z86.73 Personal history of transient ischemic attack (TIA), and cerebral infarction without residual deficits; M32.9 Systemic lupus erythematosus, unspecified
CPT/HCPCS: 51798; 72110; 73502; 80053; 81003; 85025; 96374; 96375; 99284; J1100; J1885; J2270; J2405

== ENCOUNTER 2022-10-25 16:55 | Emergency (ER) | payer OTHER, SELFPAY ==
--- NOTE | 2022-10-25 17:06 | ECG_ITS ---
[facility] Test Date: 2022-10-25 Pat Name: Licha Traylor Department: Room: Gender: Female [employer] Supervisor: : [id number] Requested By: Christopher Perez Order Number: [id number] Rishi MD: Phoebe Sanchez M.D. Measurements Intervals [place] Rate: 51 P: 53 NE: 152 QRS: 0 QRSD: 98 T: 39 QT: 360 QTc: 334 Interpretive Statements SINUS BRADYCARDIA NONSPECIFIC T-WAVE ABNORMALITY Compared to ECG 11/17/2021 08:05:07 Sinus rhythm no longer present T-wave abnormality still present Electronically Signed On 10-25-2022 20:10:54 CDT by Phoebe Sanchez M.D. [id number]
--- NOTE | 2022-10-25 17:06 | CTR_ITS ---
PROCEDURE INFORMATION: Exam: CT Head Without Contrast Exam date and time: 10/25/2022 4:56 PM Age: 56 years old Clinical indication: Stroke-like symptoms; Altered mental status/memory loss; RT upper extremity and RT lower extremity weakness; Additional info: Symptoms of acute stroke TECHNIQUE: Imaging protocol: Computed tomography of the head without contrast. Radiation optimization: All CT scans at this facility use at least one of these dose optimization techniques: automated exposure control; mA and/or kV adjustment per patient size (includes targeted exams where dose is matched to clinical indication); or iterative reconstruction. Other technique: STROKE PROTOCOL was implemented. REPORTING DATA: Count of CT and Cardiac NM exams in prior 12 months: This patient has received [address] and 0 known cardiac nuclear medicine studies in the 12 months prior to the current study. COMPARISON: No relevant prior studies available. RADIATION DOSE METRICS: Total DLP (mGy-cm): 1162 FINDINGS: Brain: Normal. No hemorrhage. Unremarkable white matter. No mass effect. Cerebral ventricles: No ventriculomegaly. Paranasal sinuses: Visualized sinuses are unremarkable. No fluid levels. Mastoid air cells: Visualized mastoid air cells are well aerated. Bones/joints: Unremarkable. No acute fracture. Soft tissues: Unremarkable. CT/CT head thrombolytic [id number] IMPRESSION: No acute intracranial abnormality. ASSESSMENT: ASPECTS ([place] Stroke Program Early CT Score) is 10.
[2022-10-25 17:12] VITALS: BMI 30.1
--- NOTE | 2022-10-25 17:27 | CTR_ITS ---
PROCEDURE INFORMATION: Exam: CTA Head With Contrast, Arteriography Exam date and time: 10/25/2022 6:30 PM Age: 56 years old Clinical indication: Drowsiness or somnolence and weakness; Additional info: Visual disturbance/headache TECHNIQUE: Imaging protocol: Computed tomographic angiography of the head with contrast. Exam focused on the arteries. 3D rendering (Not supervised by radiologist): MIP and/or 3D reconstructed images were created by the technologist. Radiation optimization: All CT scans at this facility use at least one of these dose optimization techniques: automated exposure control; mA and/or kV adjustment per patient size (includes targeted exams where dose is matched to clinical indication); or iterative reconstruction. Contrast material: OMNI 350; Contrast volume: 100 ml; Contrast route: INTRAVENOUS (IV); REPORTING DATA: Count of CT and Cardiac NM exams in prior 12 months: This patient has received [address] and 0 known cardiac nuclear medicine studies in the 12 months prior to the current study. COMPARISON: CT head thrombolytic [id number] 10/25/2022 4:56 PM RADIATION DOSE METRICS: Total DLP (mGy-cm): 1122.72 FINDINGS: ANTERIOR CIRCULATION: Right internal carotid artery: Intracranial segment is patent with no significant stenosis. No aneurysm. Right middle cerebral artery: No occlusion or significant stenosis. No aneurysm. Right anterior cerebral artery: No occlusion or significant stenosis. No aneurysm. Left internal carotid artery: Intracranial segment is patent with no significant stenosis. No aneurysm. Left middle cerebral artery: No occlusion or significant stenosis. No aneurysm. Left anterior cerebral artery: No occlusion or significant stenosis. No aneurysm. POSTERIOR CIRCULATION: Right vertebral artery: No occlusion or significant stenosis. No aneurysm. Left vertebral artery: No occlusion or significant stenosis. No aneurysm. Basilar artery: No occlusion or significant stenosis. No aneurysm. Right posterior cerebral artery: No occlusion or significant stenosis. No aneurysm. Left posterior cerebral artery: No occlusion or significant stenosis. No aneurysm. Brain: No definite mass, mass effect, or midline shift. Cerebral ventricles: No ventriculomegaly. Bones/joints: Unremarkable. No acute fracture. Soft tissues: Unremarkable. PROCEDURE INFORMATION: Exam: CTA Neck With Contrast Exam date and time: 10/25/2022 6:30 PM Age: 56 years old Clinical indication: Drowsiness or somnolence and weakness; Additional info: Visual disturbance/headache TECHNIQUE: Imaging protocol: Computed tomographic angiography of the neck with contrast. 3D rendering (Not supervised by radiologist): MIP and/or 3D reconstructed images were created by the technologist. Radiation optimization: All CT scans at this facility use at least one of these dose optimization techniques: automated exposure control; mA and/or kV adjustment per patient size (includes targeted exams where dose is matched to clinical indication); or iterative reconstruction. Contrast material: OMNI 350; Contrast volume: 100 ml; Contrast route: INTRAVENOUS (IV); REPORTING DATA: Count of CT and Cardiac NM exams in prior 12 months: This patient has received [address] and 0 known cardiac nuclear medicine studies in the 12 months prior to the current study. COMPARISON: CT head thrombolytic [id number] 10/25/2022 4:56 PM RADIATION DOSE METRICS: Total DLP (mGy-cm): 1122.72 FINDINGS: Right common carotid artery: No stenosis. No dissection or occlusion. Right internal carotid artery: No stenosis of the extracranial segment. No dissection or occlusion. Right external carotid artery: No occlusion or stenosis of the origin. Left common carotid artery: No stenosis. No dissection or occlusion. Left internal carotid artery: No stenosis of the extracranial segment. No dissection or occlusion. Left external carotid artery: No occlusion or stenosis of the origin. Right vertebral artery: No stenosis. No dissection or occlusion. Left vertebral artery: No stenosis. No dissection or occlusion. Thyroid: 9 mm left thyroid lobe nodule noted. Soft tissues: Normal. No significant soft tissue swelling. Bones/joints: No acute fracture. CT/CT angio headneck* [id number] IMPRESSION: No large vessel stenosis or occlusion. IMPRESSION: No stenosis or occlusion. COMMENTS: Consistent with the [employer]'s Incidental Findings Committee white paper (J Am Elizabeth Radiol 2015): In patients aged 35 years and older with an incidental thyroid nodule equal to or greater than 1.[address], MRI or extrathyroidal US, further evaluation with dedicated thyroid US is recommended for patients with normal life expectancy and without comorbidities. For smaller nodules without suspicious features, no further evaluation or follow up is recommended. REFERENCES: NASCET CRITERIA. The degree of stenosis in the cervical segment of the internal carotid artery is based on NASCET criteria. Normal is no stenosis. Mild is less than 50% stenosis. Moderate is 50-69% stenosis. Severe is 70% to 99% stenosis. Total occlusion is no detectable patent lumen.
--- NOTE | 2022-10-25 17:27 | W.ED.NEUROSD ---
Documented by User: Christopher Reveles DO 10/26/22 15:06 HPI - Neuro Symptoms/Deficit General: Chief Complaint: Neuro Symptoms/Deficit Stated Complaint: Stoke like symptoms Time Seen by Provider: 10/25/22 17:05 Source: patient Mode of arrival: EMS History of Present Illness: 56-year-old female presents emergency room via EMS her last known well was approximately 1600 today. She was seen yesterday for headache at another outside facility had CT that was reported as negative she returned to the clinic today with complaint of headache was given Toradol and then began to have symptoms of right-sided weakness in the arm and leg and EMS was called. She was transported to our facility on arrival initially seen the patient and CT she has variable findings with function in her right arm but when asked to raise her arm or her leg specifically she exhibits weakness. Her findings are inconsistent. Please see Dr. Villareal's note and his stroke assessment. 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) PUD (peptic ulcer disease) Surgical History History of abdominoplasty History of History of hysterectomy History of laparoscopic cholecystectomy Family History Other CAD (coronary artery disease) Cancer Social History Smoking and tobacco status: never smoked Second hand smoke exposure: No Alcohol intake: never Substance/Drug Use: current Other substance/drug use details: has [place] medical card Lives independently: Yes Marital status: service: No Current occupational status: employed Current occupation: [employer] Current gender identity: Female Special ashanti needs: No Agree to transfusion: Yes Physical Exam Const: GENERAL APPEARANCE: cooperative and comfortable ORIENTATION/CONSCIOUSNESS: Yes awake HENMT: COMMON NORMALS: normocephalic, atraumatic and hearing grossly normal bilaterally HEAD & SCALP: normocephalic and atraumatic Resp: COMMON NORMALS: normal respiratory effort, No retractions, No use of accessory muscles and clear to auscultation bilaterally AUSCULTATION: clear to auscultation bilaterally Cardio: COMMON NORMALS: regular rate, regular rhythm and No murmurs present (Cardio) RATE: regular rate RHYTHM: regular rhythm GI: COMMON NORMALS: Soft to palpation and No hepatosplenomegaly present AUSCULTATION: Yes normoactive bowel sounds PALPATION: Yes Soft to palpation, No Tenderness to palpation present (GI), No Guarding due to palpation present (GI) and Yes No hepatosplenomegaly present Extremity: COMMON NORMALS: normal to inspection, capillary refill normal, no clubbing, cyanosis or edema, no calf tenderness and no pedal edema Skin: COMMON NORMALS: no rashes or lesions noted GENERAL SKIN EXAM: no rashes or lesions noted Course Vital Signs: Vital signs: Vital Signs Pulse Rate 61 10/25/22 20:30 Respiratory Rate 16 10/25/22 20:30 Blood Pressure 110/75 10/25/22 20:30 Pulse Oximetry 100 10/25/22 20:30 Oxygen Delivery Me thod Room Air 10/25/22 19:51 MDM - Neuro Symptoms/Deficit Medical Decision Making Dr. Villareal is on a full exam. He has are scored at a 5 to a 7 some of her symptoms began yesterday and account for 2 points. He does not feel this is consistent with a stroke and at this time is not recommending tPA. He is recommending a CT head and neck which has been ordered. Patient is having various rhythmic movements however on command she will stop them and when distracted she will stop time she still has a bright blink reflex during these episodes she will even stop and suddenly vocalize. Appear to be functional seizures. Discussed Dr. Villareal he agrees that they are not likely real seizures does not feel that should be treated either. Care signed out to Dr. Silver at change of shift. See final notes for diagnosis and disposition. Patient CT angio here is normal she has no signs of acute stroke she has been well-appearing here she is stable for discharge she is to follow-up with Dr. Leon return if worsening she understands agrees to plan. Medical Records I reviewed the patient's medical records. Lab Data I reviewed the patient's lab results. 10/25/22 17:28 10/25/22 17:[address] 10/25/22 17:06 IMPRESSION: No acute intracranial abnormality. ASSESSMENT: ASPECTS ([place] Stroke Program Early CT Score) is 10. Head/Neck CTA 10/25/22 17:27 IMPRESSION: No large vessel stenosis or occlusion. IMPRESSION: No stenosis or occlusion. COMMENTS: Consistent with the [employer]'s Incidental Findings Committee white paper (J Am Elizabeth Radiol 2015): In patients aged 35 years and older with an incidental thyroid nodule equal to or greater than 1.[address], MRI or extrathyroidal US, further evaluation with dedicated thyroid US is recommended for patients with normal life expectancy and without comorbidities. For smaller nodules without suspicious features, no further evaluation or follow up is recommended. REFERENCES: NASCET CRITERIA. The degree of stenosis in the cervical segment of the internal carotid artery is based on NASCET criteria. Normal is no stenosis. Mild is less than 50% stenosis. Moderate is 50-69% stenosis. Severe is 70% to 99% stenosis. Total occlusion is no detectable patent lumen. Laboratory Results WBC 12.5 10^3/uL (4.0-10.0) H 10/25/22: RBC 4.32 10^6/uL (4.1-5.3) 10/25/22 17: Hgb 13.7 g/dL (11.5-15.3) 10/25/22: Hct 40.5 % (37.0-47.0) 10/25/22: MCV 93.8 fl (81-99) 10/25/22 17: MCH 31.7 pg (28.0-34.0) 10/25/22 17: MCHC 33.8 g/dL (30.0-36.0) 10/25/22: RDW 13.1 % (12.1-15.1) 10/25/22 17: Plt Count 262 10^3/cmm (130-400) 10/25/22 17: MPV 10.1 fL (7.4-10.4) 10/25/22: Neut % (Auto) 84.6 % 10/25/22 17: Lymph % (Auto) 10.0 % 10/25/22 17: [place] % (Auto) 5.0 % 10/25/22 17: Eos % (Auto) 0.0 % 10/25/22 17: Baso % (Auto) 0.1 % 10/25/22: Neut # (Auto) 10.59 10^3/uL (1.8-7.7) H 10/25/22: Lymph # (Auto) 1.3 10^3/uL (0.8-4.8) 10/25/22: [place] # (Auto) 0.6 10^3/uL (0.2-0.9) 10/25/22: Eos # (Auto) 0.0 10^3/uL (0.0-0.8) 10/25/22: Baso # (Auto) 0.0 10^3/uL (0.0-0.1) 10/25/22: Nucleated RBC % (auto) 0 % 10/25/22: Nucleated RBCs # 0.0 /100WBC 10/25/22: PT 13.00 SECONDS (12.1-14.9) 10/25/22: INR 0.96 (0.8-1.2) 10/25/22: APTT 19.3 SECONDS (23.9-36.7) L 10/25/22 17: Sodium 140 mmol/L (136-145) 10/25/22: Potassium 3.7 mmol/L (3.5-5.1) 10/25/22: Chloride 102 mmol/L (98-107) 10/25/22: Carbon Dioxide 25 mmol/L (22-29) 10/25/22: Anion Gap 16.7 (5-19) 10/25/22 17: BUN 9 mg/dL (6-20) 10/25/22 17: Creatinine 0.8 mg/dL (0.5-0.9) 10/25/22 17: GFR Calculation 73.9 mL/min (90-130) L 10/25/22 17: Glucose 105 mg/dL (65-115) 07/18/23 17:28 Calculated Osmolality 289 mOsm/kg (285-295) 10/25/22 17:28 Calcium 10.0 mg/dL (8.5-10.5) 10/25/22 17:28 Total Bilirubin 0.5 mg/dL (0.15-1.2) 10/25/22 17:28 AST 19 U/L (0-32) 10/25/22 17:28 ALT 25 U/L (0-33) 10/25/22 17:28 Alkaline Phosphatase 71 U/L (35-105) 10/25/22 17:28 Total Protein 7.1 g/dL (6.6-8.7) 10/25/22 17:28 Albumin 4.2 g/dL (3.5-5.2) 10/25/22 17:28 Globulin 2.9 g/dL (1.3-4.6) 10/25/22 17:28 Discharge Plan Discharge Patient Disposition: Home Clinical Impression: Fainting episodes, Weakness Condition: Stable Prescriptions: No Action lorazepam [Ativan] 1 mg tablet 1 mg PO BID PRN (Reason: anxiety) Qty: 60 0RF sucralfate 1 gram tablet 1 g PO TID Qty: 90 2RF pantoprazole 40 mg tablet,delayed release (DR/EC) 40 mg PO BID Qty: 60 3RF ondansetron 8 mg tablet,disintegrating 8 mg PO Q6H PRN (Reason: Nausea And Vomiting) Qty: 20 2RF trazodone 100 mg tablet 100 mg PO BEDTIME Qty: 30 2RF pregabalin [Lyrica] 150 mg capsule 150 mg PO TID Qty: 90 2RF (DME) Standard Wheel Chair See Rx Instructions .Route .MEDSUPPLY Qty: 1 0RF Rx Instructions: As directed ergocalciferol (vitamin D2) 1,250 mcg (50,000 unit) capsule 1,250 mcg PO Q7D Discharge Orders: Discharge ED (Routine); Ordered 10/25/22 Ordered By: Nadya Silver Referrals: Abbie Caballero MD [Primary Care Provider] - 1-3 days Discharge Diet: Advance as tolerated Discharge Activity: Resume usual activity Patient Instructions: Weakness (ED) Coding Level of Care Code ED Manager Qa for Chg Fwd Documented by User: Nadya Silver MD 10/25/22 20:46 HPI - Neuro Symptoms/Deficit General: Chief Complaint: Neuro Symptoms/Deficit Stated Complaint: Stoke like symptoms Time Seen by Provider: 10/25/22 17:05 PFSH ED PFSH: Medical History Anxiety COVID-19 (~09/2020) History of stroke (~01/2020) Lupus Panic attacks 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) PUD (peptic ulcer disease) Surgical History History of abdominoplasty History of History of hysterectomy History of laparoscopic cholecystectomy Family History Other CAD (coronary artery disease) Cancer Social History Smoking and tobacco status: never smoked Second hand smoke exposure: No Alcohol intake: never Substance/Drug Use: current Other substance/drug use details: has [place] medical card Lives independently: Yes Marital status: service: No Current occupational status: employed Current occupation: [employer] Current gender identity: Female Special ashanti needs: No Agree to transfusion: Yes Course Vital Signs: Vital signs: Vital Signs Pulse Rate 61 10/25/22 20:30 Respiratory Rate 16 10/25/22 20:30 Blood Pressure 110/75 10/25/22 20:30 Pulse Oximetry 100 10/25/22 20:30 Oxygen Delivery Me thod Room Air 10/25/22 19:51 MDM - Neuro Symptoms/Deficit Medical Decision Making Dr. Villareal is on a full exam. He has are scored at a 5 to a 7 some of her symptoms began yesterday and account for 2 points. He does not feel this is consistent with a stroke and at this time is not recommending tPA. He is recommending a CT head and neck which has been ordered. Patient CT angio here is normal she has no signs of acute stroke she has been well-appearing here she is stable for discharge she is to follow-up with Dr. Leon return if worsening she understands agrees to plan. Lab Data 10/25/22 17:28 10/25/22 17: Radiology Impressions Head CT 10/25/22 17:06 IMPRESSION: No acute intracranial abnormality. ASSESSMENT: ASPECTS ([place] Stroke Program Early CT Score) is 10. Head/Neck CTA 10/25/22 17:27 IMPRESSION: No large vessel stenosis or occlusion. IMPRESSION: No stenosis or occlusion. COMMENTS: Consistent with the [employer]'s Incidental Findings Committee white paper (J Am Elizabeth Radiol 2015): In patients aged 35 years and older with an incidental thyroid nodule equal to or greater than 1.[address], MRI or extrathyroidal US, further evaluation with dedicated thyroid US is recommended for patients with normal life expectancy and without comorbidities. For smaller nodules without suspicious features, no further evaluation or follow up is recommended. REFERENCES: NASCET CRITERIA. The degree of stenosis in the cervical segment of the internal carotid artery is based on NASCET criteria. Normal is no stenosis. Mild is less than 50% stenosis. Moderate is 50-69% stenosis. Severe is 70% to 99% stenosis. Total occlusion is no detectable patent lumen. Laboratory Results WBC 12.5 10^3/uL (4.0-10.0) H 10/25/22: RBC 4.32 10^6/uL (4.1-5.3) 10/25/22 17: Hgb 13.7 g/dL (11.5-15.3) 10/25/22: Hct 40.5 % (37.0-47.0) 10/25/22: MCV 93.8 fl (81-99) 10/25/22 17: MCH 31.7 pg (28.0-34.0) 10/25/22 17: MCHC 33.8 g/dL (30.0-36.0) 10/25/22: RDW 13.1 % (12.1-15.1) 10/25/22 17: Plt Count 262 10^3/cmm (130-400) 10/25/22: MPV 10.1 fL (7.4-10.4) 10/25/22 17: Neut % (Auto) 84.6 % 10/25/22: Lymph % (Auto) 10.0 % 10/25/22: [place] % (Auto) 5.0 % 10/25/22: Eos % (Auto) 0.0 % 10/25/22 17: Baso % (Auto) 0.1 % 10/25/22: Neut # (Auto) 10.59 10^3/uL (1.8-7.7) H 10/25/22: Lymph # (Auto) 1.3 10^3/uL (0.8-4.8) 10/25/22: [place] # (Auto) 0.6 10^3/uL (0.2-0.9) 10/25/22 17: Eos # (Auto) 0.0 10^3/uL (0.0-0.8) 10/25/22: Baso # (Auto) 0.0 10^3/uL (0.0-0.1) 10/25/22: Nucleated RBC % (auto) 0 % 10/25/22 Nucleated RBCs # 0.0 /100WBC 10/25/22: PT 13.00 SECONDS (12.1-14.9) 10/25/22: INR 0.96 (0.8-1.2) 10/25/22: APTT 19.3 SECONDS (23.9-36.7) L 10/25/22 17: Sodium 140 mmol/L (136-145) 10/25/22: Potassium 3.7 mmol/L (3.5-5.1) 10/25/22: Chloride 102 mmol/L (98-107) 10/25/22: Carbon Dioxide 25 mmol/L (22-29) 10/25/22: Anion Gap 16.7 (5-19) 10/25/22: BUN 9 mg/dL (6-20) 10/25/22 17:28 Creatinine 0.8 mg/dL (0.5-0.9) 10/25/22 17:28 GFR Calculation 73.9 mL/min (90-130) L 10/25/22 17:28 Glucose 105 mg/dL (65-115) 10/25/22 17:28 Calculated Osmolality 289 mOsm/kg (285-295) 10/25/22 17:28 Calcium 10.0 mg/dL (8.5-10.5) 10/25/22 17:28 Total Bilirubin 0.5 mg/dL (0.15-1.2) 10/25/22 17:28 AST 19 U/L (0-32) 10/25/22 17:28 ALT 25 U/L (0-33) 10/25/22 17:28 Alkaline Phosphatase 71 U/L (35-105) 10/25/22 17:28 Total Protein 7.1 g/dL (6.6-8.7) 10/25/22 17:28 Albumin 4.2 g/dL (3.5-5.2) 10/25/22 17:28 Globulin 2.9 g/dL (1.3-4.6) 10/25/22 17:28 Discharge Plan Discharge Patient Disposition: Home Clinical Impression: Fainting episodes, Weakness Condition: Stable Prescriptions: No Action lorazepam [Ativan] 1 mg tablet 1 mg PO BID PRN (Reason: anxiety) Qty: 60 0RF sucralfate 1 gram tablet 1 g PO TID Qty: 90 2RF pantoprazole 40 mg tablet,delayed release (DR/EC) 40 mg PO BID Qty: 60 3RF ondansetron 8 mg tablet,disintegrating 8 mg PO Q6H PRN (Reason: Nausea And Vomiting) Qty: 20 2RF trazodone 100 mg tablet 100 mg PO BEDTIME Qty: 30 2RF pregabalin [Lyrica] 150 mg capsule 150 mg PO TID Qty: 90 2RF (DME) Standard Wheel Chair See Rx Instructions .Route .MEDSUPPLY Qty: 1 0RF Rx Instructions: As directed ergocalciferol (vitamin D2) 1,250 mcg (50,000 unit) capsule 1,250 mcg PO Q7D Discharge Orders: Discharge ED (Routine); Ordered 10/25/22 Ordered By: Nadya Silver Referrals: Abbie Caballero MD [Primary Care Provider] - 1-3 days Discharge Diet: Advance as tolerated Discharge Activity: Resume usual activity Patient Instructions: Weakness (ED) Coding Level of Care Code ED Manager Qa for Alissa Cedillo
[2022-10-25 17:47] LABS: INR 0.96 (0.8-1.2)
[2022-10-25 17:48] LABS: Partial Thromboplastin Time 19.3 SECONDS (23.9-36.7)
--- NOTE | 2022-10-25 17:52 | P.CONIM_ITS ---
Providers/Reason For Consult Consulting Physician/Specialty*: Chalo Villareal MD Neurology and Epilepsy Reason for Consult*: Code stroke on 10/25/2022 Primary Care Provider: Abbie Caballero MD History of Present Illness History of Present Illness Licha Traylor is a 56 year old female with a reported history of remote stroke in the past that affected the right side of her body, recurrent syncopal episodes, seizure disorder, anxiety and panic disorder. According to the patient on 10/24/2022 she was at home. She stated she got up from her bedroom to go to the bathroom to urinate. The patient stated that after she had finished urinating she experienced a severe occipital pain that felt like her head was about to explode. The patient stated that she started walking back to her bedroom and experienced loss of consciousness without warning. The patient stated that she hit her left forehead and was unconscious for at least an hour. The patient's stated that he contacted the patient around 12 PM on 10/24/2022. The patient reported that she was experiencing severe visual issues with inability to see and was experiencing a severe headache. The patient was taken to [facility]. According to the patient she underwent imaging studies and was released. Today on 10/25/2022 the patient stated she was seen at her family physician's office secondary to the continued vision loss since 10/24/2022 and while she was at her family physician's office she experienced another episode of loss of consciousness. The patient stated that when she regained consciousness she was still experiencing the visual loss from 10/24/2022 as well acute numbness over the right face in a V1 and V2 distribution associated with tongue and right sided body numbness involving her right arm and right leg with right upper extremity weakness and increasing tremors and shaking and trouble speaking around 4 PM today. Patient last known well was reported to be 12 PM on 10/24/2022. Noncontrast head CT scan was obtained in the [facility] emergency room on 10/25/2022 and was negative for acute findings. During the patient's neurological examination the patient reported that she continued to have difficulty seeing since 10/24/2022 although the patient was able to recognize and count fingers and recognize her when he presented to the emergency department room 11. At times the patient displayed stutterin g/dysarthric type speech but when I questioned her further about her past medical history and ask her about her home medications medications her speech was fluent. Motor testing initially suggested some questionable right upper extremity weakness suggestive of a drift in the right upper extremity but with repeat testing motor testing was essentially 5/5. Patient had no drift in upper extremities and there was no ataxia. The patient answered both questions incorrectly regarding the month and her age and the patient reported decreased pinprick in the right face in a V1 and V2 distribution and she reported neglect on double sensory stimulation. NIH score including the patient reported vision loss that occurred on 10/24/2022 was a NIH score = 6. Since the patient reported visual loss following the syncopal episode at home on 10/24/2022, the patient was not a candidate for tPA and no tPA was administered. I spoke with the attending ER physician regarding the patient's inconsistent findings on neurological examination. I did recommend patient undergo CT angiogram of the head and neck to assess for any stenosis in the posterior circulation since the patient reported visual loss since 10/24/2022. I spoke with the patient's at great length regarding the patient's clinical condition and neurological findings and additional testing that was recommended. 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 3 times daily for seizure prophylaxis Neurontin 800 mg p.o. every 12 hours Sucralfate 1 g 3 times a day Zanaflex 4 mg p.o. every 6 hours as needed Tramadol 50 mg p.o. every 8 hours as Trazodone 100 mg p.o. nightly Diclofenac 75 mg p.o. every 12 hours as needed Vitamin D2 1250 mcg every 7 days Ativan 1 mg p.o. twice daily as needed for Zofran 8 mg p.o. every 6 hours as needed for nausea Pantoprazole 40 mg p.o. twice a day Drug allergies: Hydrocodone which resulted in irritability Past medications: Lamotrigine, prednisone Habits: None Family history: Negative for strokes Review of Systems General: Reports: 10 or more systems reviewed and unremarkable except in HPI and below Eyes: Reports: change in vision and other (loss of vision) Neuro: Reports: headache(s), seizure-like activity and other (Recurrent syncopal episodes) Medications/Allergies Home Medications Medication Instructions Recorded Confirmed Last Taken Type diclofenac sodium 75 mg 75 mg PO Q12H PRN pain #20 tabs 09/27/22 10/25/22 Unknown Rx tablet,delayed release ergocalciferol (vitamin D2) 1,250 1,250 mcg PO Q7D 09/27/22 10/25/22 2 Weeks Ago History mcg (50,000 unit) capsule ~09/13/22 gabapentin 800 mg tablet 800 mg PO DAILY@12 09/27/22 10/25/22 Unknown History lamotrigine 100 mg tablet See Rx Instructions .Route .COMPLEX 09/27/22 10/25/22 Unknown History (Lamictal) prednisone 20 mg tablet 20 mg PO TID #15 tabs 09/27/22 10/25/22 Unknown Rx tizanidine 4 mg tablet 4 mg PO Q6H PRN muscle spasticity 09/27/22 10/25/22 Unknown Rx #20 tabs trazodone 100 mg tablet 100 mg PO BEDTIME #30 tabs 10/19/22 10/25/22 Unknown Rx pregabalin 150 mg capsule (Lyrica) 150 mg PO TID #90 caps 10/20/22 10/25/22 Unknown Rx tramadol 50 mg tablet 50 mg PO Q8H PRN pain #90 tabs 10/20/22 10/25/22 Unknown Rx lorazepam 1 mg tablet (Ativan) 1 mg PO BID PRN anxiety #60 tabs 10/25/22 10/25/22 Unknown Rx ondansetron 8 mg disintegrating 8 mg PO Q6H PRN Nausea And 10/25/22 10/25/22 Unknown Rx tablet Vomiting #20 tabs pantoprazole 40 mg tablet,delayed 40 mg PO BID #60 tabs 10/25/22 10/25/22 Unknown Rx release sucralfate 1 gram tablet 1 g PO TID #90 tabs 10/25/22 10/25/22 Unknown Rx Allergies Allergy/AdvReac Type Severity Reaction Status Date / Time hydrocodone Allergy ADR-Irritab Verified 10/25/22 13:35 le PFSH Acute PFSH: Medical History Anxiety COVID-19 (~09/2020) History of stroke (~01/2020) Lupus Panic attacks 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) PUD (peptic ulcer disease) Surgical History History of abdominoplasty History of History of hysterectomy History of laparoscopic cholecystectomy Family History Other CAD (coronary artery disease) Cancer Social History Smoking and tobacco status: never smoked Second hand smoke exposure: No Alcohol intake: never Substance/Drug Use: current Other substance/drug use details: has [place] medical card Lives independently: Yes Marital status: service: No Current occupational status: employed Current occupation: [employer] Current gender identity: Female Special ashanti needs: No Agree to transfusion: Yes Vitals/I&O/Wt Weight last 48 hrs Weight 181 lb Physical Exam Narrative: NIH score = 6 The patient is alert and oriented to person and situation. Speech is fluent although at times the patient displays some stammering/stuttering. Patient able to follow commands. Head atraumatic. Neck supple. Cranial nerves II through XII revealed patient reporting inability to see although the patient was able to count fingers and track objects with her eyes. The patient also reported decreased sensation to touch and pinprick over the right side of her face in a V1 and V2 distribution. Other cranial nerves were intact. Pupils 4 mm. Pupils equal round and reactive to light and accommodation. Extraocular movements intact. There were no nystagmus. Motor testing 5/5 bilaterally although initially the patient complained of weakness with a suggestive drift in the right upper extremity but would repeat testing there was no drift and patient was able to resist during motor testing of all extremities. There was no ataxia on [id number] maneuver or in the upper extremities. Deep tendon reflexes grossly symmetrical at 2+. Plantar responses flexor bilaterally. There was no clonus. Sensory examination patient reported decrease sensation to touch and pinprick in the right arm and right leg and V1 and V2 distribution of the right face. Throat clear. Lungs clear. Heart regular rhythm and rate. Abdomen soft bowel sounds positive. Extremities were negative for clubbing or cyanosis Data 10/25/22 17:28 10/25/22 17:28 A&P Assessment and plan (1) Stroke determined by clinical assessment: Assessment: 1. 56-year-old female with a history of remote stroke in the past involving the right side of her body, recurrent syncopal episodes, anxiety, panic attacks and seizures. The patient reported experiencing a severe occipital headache followed by loss of consciousness and loss of vision upon regaining consciousness on 10/24/2022 evaluated at [place] with reports of continued visual loss and recurrent syncopal episode associated with speech difficulty, right-sided numbness (face arm and leg) and right upper extremity weakness at approximately 4 PM on 10/25/2022. Neurological examination revealed patient displaying inconsistencies with tentative NIH score =6 in the [facility] emergency room. Noncontrast head CT was negative for acute findings on 10/25/2022. In view of the patient's report of syncope with vision loss on 10/24/2022 around 11 AM and discovered by her around 12 PM on 10/24/2022 with continued complaints of vision loss on 10/25/2022, associated with more acute symptoms reported as speech difficulty, right-sided numbness and right upper extremity weakness, with variation in speech quality as well as right upper extremity weakness, the patient was not a candidate for tPA and no tPA was administered. Plan: 1. Recommend CT angiogram to assess for posterior circulation stenosis 2. Recommend ophthalmology evaluation for visual complaints 3. Recommend discontinuing diclofenac since nonsteroidal anti-inflammatory medications have been reported to potentially increased risk for strokes and heart disease 4. Consider discontinuing tramadol (Ultram) since this medication has been reported to be associated with seizures 5. Recommend aspirin 325 mg p.o. every morning with food, first dose today if no contraindications 6. Recommend lipid lowering agent per stroke protocol Plan Patient was seen by neurology for code stroke on 10/25/2022 Coding Level of Care Code 48408 Diagnoses Stroke determined by clinical assessment I63.9 Time Spent (min) 45 Comment I spent 45 minutes [id number] with this patient
[2022-10-25 17:57] LABS: Basophils % 0.1 %; Hematocrit 40.5 % (37.0-47.0); Hemoglobin 13.7 g/dL (11.5-15.3); Lymphocytes # 1.3 10^3/uL (0.8-4.8); Mean Corpuscular HGB Conc 33.8 g/dL (30.0-36.0); Mean Corpuscular Hemoglobin 31.7 pg (28.0-34.0); Mean Corpuscular Volume 93.8 fl (81-99); Mean Platelet Volume 10.1 fL (7.4-10.4); Monocytes # 0.6 10^3/uL (0.2-0.9); Neutrophils # 10.59 10^3/uL (1.8-7.7); Neutrophils % 84.6 %; Nucleated Red Blood Cells % 0 %; Platelet Count 262 10^3/cmm (130-400); Red Blood Count 4.32 10^6/uL (4.1-5.3); Red Cell Distribution Width 13.1 % (12.1-15.1); White Blood Count 12.5 10^3/uL (4.0-10.0)
[2022-10-25 18:06] VITALS: BP 127/81; PULSE 51; RESP 16; O2SAT 99
[2022-10-25 18:06] LABS: Alanine Aminotransferase 25 U/L (0-33); Albumin Level 4.2 g/dL (3.5-5.2); Alkaline Phosphatase 71 U/L (35-105); Aspartate Amino Transferase 19 U/L (0-32); Blood Urea Nitrogen 9 mg/dL (6-20); Carbon Dioxide 25 mmol/L (22-29); Chloride 102 mmol/L (98-107); Globulin 2.9 g/dL (1.3-4.6); Glomerular Filtration Rate 73.9 mL/min (90-130); Glucose 105 mg/dL (65-115); Osmolality Calculated 289 mOsm/kg (285-295); Sodium 140 mmol/L (136-145); Total Bilirubin 0.5 mg/dL (0.15-1.2); Total Protein 7.1 g/dL (6.6-8.7)
--- NOTE | 2022-10-25 18:09 | PC.NURSE ---
PATIENT STATES SHE CAN'T LIFT RIGHT ARM DUE TO STROKE. NURSE NEEDED TO START AN IV AND PATIENT LIFTED RIGHT ARM WITH NO ASSIST. PATIENT HAD SEIZURE LIKE ACTIVITY THAT WAS SUDDENLY STOPPED BY STERNAL RUB. DURING STROKE SCORING PATIENT HAS EQUAL SMILE WITH NO DROOP, PATIENT STARTED DROOPING DIFFERENT SIDES OF HER SMILE THROUGH OUT ASSESSING THE PATIENT.
--- NOTE | 2022-10-25 18:12 | PC.NURSE ---
PT PRESNTS WITH SEIZURE LIKE ACTIVITY THAT STOPS WHEN STERNAL RUB. PT ALSO PRESENTS WITH STROKE LIKE SYMPTOMS THAT CHANGE FROM LEFT TO RIGHT AND IS DEGREE OF WEAKNESS THROUGHOUT THE ASSESSMENT. PTS FACIAL DROOP CHANGED FROM LEFT TO RIGHT THROUGHOUT ASSESSMENT. PTS RIGHT ARM WEAKNESS ALSO CHANGED THROUGHOUT ASSESSMENT AND WENT FROM WEAKNESS TO TOTAL STRENGTH THROUGHOUT ASSESSMENT.
[2022-10-25 18:14] LABS: Anion Gap 16.7 (5-19); Potassium 3.7 mmol/L (3.5-5.1)
[2022-10-25] MEDS: iohexol 350 mg/mL 500 mL Btl (per mL) IV (18:38)
[2022-10-25 18:54] VITALS: PULSE 62; RESP 20; O2SAT 100
[2022-10-25] MEDS: ondansetron 2 mg/ML SDV 2 mL 4 MG IVP (19:05)
--- NOTE | 2022-10-25 19:14 | PC.NURSE ---
Patient refused tylenol for headache. States she usually gets dilaudid and does not want anything else for her headache. Advised Dr. Silver.
[2022-10-25 19:21] VITALS: PULSE 72; O2SAT 100
[2022-10-25 19:51] VITALS: BP 126/71; PULSE 51; RESP 18; O2SAT 100
[2022-10-25 20:11] VITALS: RESP 16; O2SAT 100
[2022-10-25] MEDS: HYDROmorphone 1 mg/mL INJ 1 mL 0.5 MG IVP (20:11)
[2022-10-25 20:30] VITALS: BP 110/75; PULSE 61; RESP 16; O2SAT 100
[2022-10-27 03:25] LABS: Glucose Point of Care 109 mg/dL (70-110)
== END 2022-10-25 20:31 | disposition home or self-care (01) ==
PROVIDERS: Family Medicine; Emergency Provider Emergency Medicine; PCP Family Medicine
DX: R53.1 Weakness (principal); R55 Syncope and collapse; Z86.73 Personal history of transient ischemic attack (TIA), and cerebral infarction without residual deficits; M32.9 Systemic lupus erythematosus, unspecified
CPT/HCPCS: 36415; 36416; 70450; 70496; 70498; 80053; 82962; 85025; 85610; 85730; 93005; 96374; 96375; 99285; J1170; J2405; Q9967

== ENCOUNTER 2022-11-14 08:01 | Day surgery (SDC) | payer OTHER, SELFPAY ==
[2022-11-11 12:55] VITALS: BMI 35.9
[2022-11-14] VITALS (11 sets, daily range): BP systolic 127–152; BP diastolic 82–121; PULSE 59–98; RESP 16–20; TEMP 36.1–36.8; O2SAT 93–100
--- NOTE | 2022-11-14 08:52 | ANES.PREANE2 ---
Pre-Anesthetic Assessment Height/Weight: Height 1.65 m Weight 97.976 kg Temp Pulse Resp BP Pulse Ox O2 Del Method 98.2 F 65 17 131/83 95 Room Air 11/14/22 08:11 11/14/22 08:11 11/14/22 08:11 11/14/22 08:11 11/14/22 08:11 11/14/22 08:11 Operation Date: 11/14/22 09:50 Proposed Procedures p 94379 lap incisional hernia iwth mesh : K43.2(Not Applicable) - Moreno Moise DO Familial anesthetic complications: None Was Beta Jacobo taken within 24 hours: N/A Was Clonidine taken within 24 hours: N/A Last intake: Intake Last Liquid Date 11/13/22 Last Liquid Time 17:00 Last Solid Date 11/13/22 Last Solid Time 17:00 Social No alcohol and No tobacco Exam alert, oriented x 3, clear to auscultation bilaterally and regular rate & rhythm Airway Mallampati: Class II Dentition: chipped GI Gastroesophageal Reflux Disease and Peptic Ulcer Disease Metabolic Morbid Obesity and Thyroid Disease (hx of - no longer on medications) Musc/skel lupus Neuropsych Cerebrovascular Accident and Seizure Anesthetic Plan ASA status: 3 Anesthesia: General Risk of > 500 ml blood loss (7ml/kg in children): No Medications/Allergies Home Medications Medication Instructions Recorded Confirmed Last Taken Type ergocalciferol (vitamin D2) 1,250 1,250 mcg PO Q7D 09/27/22 11/14/22 11/13/22 History mcg (50,000 unit) capsule trazodone 100 mg tablet 100 mg PO BEDTIME #30 tabs 10/19/22 11/14/22 11/13/22 Rx pregabalin 150 mg capsule (Lyrica) 150 mg PO TID #90 caps 10/20/22 11/14/22 11/13/22 Rx lorazepam 1 mg tablet (Ativan) 1 mg PO BID PRN anxiety #60 tabs 10/25/22 11/14/22 11/13/22 Rx ondansetron 8 mg disintegrating 8 mg PO Q6H PRN Nausea And 10/25/22 11/14/22 11/13/22 Rx tablet Vomiting #20 tabs pantoprazole 40 mg tablet,delayed 40 mg PO BID #60 tabs 10/25/22 11/14/2223 Rx release sucralfate 1 gram tablet 1 g PO TID #90 tabs 10/25/22 11/14/22 11/13/22 Rx Standard Wheel Chair #1 ea 10/26/22 11/07/22 Unknown Rx Allergies Allergy/AdvReac Type Severity Reaction Status Date / Time hydrocodone Allergy ADR-Irritab Verified 11/11/22 12:44 le [facility] Anesthesia Medical History Anxiety COVID-19 (~09/2020) History of stroke (~01/2020) Lupus Panic attacks 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) PUD (peptic ulcer disease) Surgical History History of abdominoplasty History of History of hysterectomy History of laparoscopic cholecystectomy Family History Other CAD (coronary artery disease) Cancer Social History Smoking and tobacco status: never smoked Second hand smoke exposure: No Alcohol intake: never Substance/Drug Use: current Other substance/drug use details: has [place] medical card Lives independently: Yes Marital status: service: No Current occupational status: employed Current occupation: [employer] Current gender identity: Female Special ashanti needs: No Agree to transfusion: Yes Data Anesthesia Cardiac Studies: No Data to Display
--- NOTE | 2022-11-14 08:59 | P.HP_ITS ---
Providers/Chief Complaint Primary Care Provider: Abbie Caballero MD Chief Complaint: 62739 K43.2 History of Present Illness Licha Traylor is a 57 year old female Medications/Allergies Home Medications Medication Instructions Recorded Confirmed Last Taken Type ergocalciferol (vitamin D2) 1,250 1,250 mcg PO Q7D 09/27/22 11/14/22 11/13/22 History mcg (50,000 unit) capsule trazodone 100 mg tablet 100 mg PO BEDTIME #30 tabs 10/19/22 11/14/22 11/13/22 Rx pregabalin 150 mg capsule (Lyrica) 150 mg PO TID #90 caps 10/20/22 11/14/22 11/13/22 Rx lorazepam 1 mg tablet (Ativan) 1 mg PO BID PRN anxiety #60 tabs 10/25/22 11/14/22 11/13/22 Rx ondansetron 8 mg disintegrating 8 mg PO Q6H PRN Nausea And 10/25/22 11/14/22 11/13/22 Rx tablet Vomiting #20 tabs pantoprazole 40 mg tablet,delayed 40 mg PO BID #60 tabs 10/25/22 11/14/22 11/13/22 Rx release sucralfate 1 gram tablet 1 g PO TID #90 tabs 10/25/22 11/14/22 11/13/22 Rx Standard Wheel Chair #1 ea 10/26/22 11/07/22 Unknown Rx Allergies Allergy/AdvReac Type Severity Reaction Status Date / Time hydrocodone Allergy ADR-Irritab Verified 11/11/22 12:44 le PFSH Acute PFSH: Medical History Anxiety COVID-19 (~09/2020) History of stroke (~01/2020) Lupus Panic attacks 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) PUD (peptic ulcer disease) Surgical History History of abdominoplasty History of History of hysterectomy History of laparoscopic cholecystectomy Family History Other CAD (coronary artery disease) Cancer Social History Smoking and tobacco status: never smoked Second hand smoke exposure: No Alcohol intake: never Substance/Drug Use: current Other substance/drug use details: has [place] medical card Lives independently: Yes Marital status: service: No Current occupational status: employed Current occupation: [employer] Current gender identity: Female Special ashanti needs: No Agree to transfusion: Yes Vitals/I&O/Wt Last Vital Signs Temp 98.2 F 11/14/22 08:11 Pulse 65 11/14/22 08:11 Resp 17 11/14/22 08:11 BP 131/83 11/14/22 08:11 Pulse Ox 95 11/14/22 08:11 O2 Del Method Room Air 11/14/22 08:11 A&P Assessment and plan (1) Incisional hernia: Plan Laparoscopic repair of incisional hernia with mesh Attestations Medical Necessity Statement*: home Coding Level of Care Code Acute Code for [facility] Diagnoses Incisional hernia K43.2
[2022-11-14] MEDS: sodium chloride 0.9% 1,000 ML 30 ML IV (09:01)
[2022-11-14] MEDS: ceFAZolin 2,000 MG in sodium chloride 0.9% (plus) 50 ML 100 MG IV (09:37)
[2022-11-14] MEDS: lidocaine-epi 2% 20 mL INJ INJECTION (09:58)
[2022-11-14] MEDS: HYDROmorphone 1 mg/mL INJ 1 mL 0.5 MG IVP (10:45)
[2022-11-14] MEDS: ondansetron 2 mg/ML SDV 2 mL 4 MG IVP (11:07)
[2022-11-14] MEDS: oxyCODONE-APAP 5-325 mg Tablet 2 TAB PO (11:56)
--- NOTE | 2022-11-14 12:11 | ANE.PACU2 ---
Inpatient post-anesthesia follow up: Airway intact: Yes Vital signs: Temperature 97.7 F Pulse Rate 81 Respiratory Rate 18 Blood Pressure 142/92 Pulse Oximetry 93 Oxygen Delivery Me thod Room Air Oxygen Flow Rate 6 Fraction of Inspir ed Oxygen Hydration adequate: Yes Nausea and vomiting: No Pain level: 1 Mental status: Baseline
--- NOTE | 2022-11-14 12:51 | PC.NURSE ---
Pt continues rating pain 9/10 after given PO dose of pain medication, pt resting in bed talking with at bedside at this time, patient vital signs WNL, patient with chronic lower back and hip pain.
--- NOTE | 2022-11-14 16:14 | P.OP_ITS ---
Operative Report Date of procedure: November 14, 2022 Pre-op diagnosis: Incisional hernia Post-op diagnosis: same Procedure done: Laparoscopic repair of incisional hernia with mesh Implants: 6 inch round Ventralight mesh Specimens removed/disposition: Hernia sac Surgeon: Dr. Moreno Moise DO Anesthesia: General Estimated blood loss (mL): 5 Complications: None apparent Brief History: This very pleasant 57-year-old female with an incisional hernia just inferior to her umbilicus. Hernia is reducible and approximately 3 cm preoperatively. She has exquisite back and right lower quadrant abdominal pain that is likely coming from her back. I explicitly told her that I do not believe the pain is related to her hernia but she does want her hernia repaired. The risk and benefits were explained and documented. Procedure: Patient was wheeled into the operative room and placed on the OR table in a supine position. Abdomen was inspected prepped and draped in usual sterile fashion. Time-out was performed and all present were in agreement. A 15 blade scalp was used to make a 5 millimeter incision left upper quadrant. A Veress needle was placed into the incision and intra-abdominal insufflation was brought to 15 millimeters of mercury. A 12 millimeter trocar was placed into the left lower quadrant. The energy but device was then used to cut out the hernia sac. The hernia measured 3.4 cm in diameter intraoperatively. A 6 inch ventral light mesh was placed into the abdomen and brought up through the umbilicus using an the Xavi-Kathleen. The mesh was then tacked in place in a double crown fashion. The skeleton of the mesh was removed via the left lower quadrant. The hernia sac was then removed from the abdomen via the left lower quadrant. The left lower quadrant port site was closed with an 0 Vicryl suture in a Xavi- Kathleen in a dyqoka-gh-nxorv fashion. Incisions were closed with 4 O Vicryl in a subcuticular interrupted fashion. Skin glue was applied. Patient tolerated the procedure well.
== END 2022-11-14 13:25 | disposition home or self-care (01) ==
PROVIDERS: PCP Family Medicine; Visit Provider Surgery
PROC: 0WQF4ZZ Repair Abdominal Wall, Percutaneous Endoscopic Approach (ICD-10-PCS; CPT 49591; principal; 2022-11-14 09:40)
DX: K43.2 Incisional hernia without obstruction or gangrene (principal); K21.9 Gastro-esophageal reflux disease without esophagitis; E66.01 Morbid (severe) obesity due to excess calories; Z68.35 Body mass index [BMI] 35.0-35.9, adult; Z86.16 Personal history of COVID-19; Z86.73 Personal history of transient ischemic attack (TIA), and cerebral infarction without residual deficits
CPT/HCPCS: 49591; 88302; J0690; J1100; J1170; J2405; J2704; J2710; J3010; J3490; J7030

== ENCOUNTER 2022-11-24 14:20 | Outpatient (CLI) | payer OTHER, SELFPAY ==
--- NOTE | 2022-11-24 15:15 | MR_ITS ---
WS: [id number] MRI LUMBAR SPINE NONCONTRAST TECHNIQUE: Sagittal T1, T2 and STIR imaging. Axial T1 and T2 imaging. CLINICAL INFORMATION: R53.1 - Weakness COMPARISON: None. FINDINGS: Mild lumbar curve. No acute compression. No high-grade central canal stenosis. Disc space narrowing L 5-S1. L1-L2: Normal. L2-L3: Mild annular bulging. Mild facet arthropathy. Spinal canal and foramen are patent. L3-L4: Mild annular bulging. Mild facet arthropathy. Spinal canal and foramen are patent. L4-L5: No significant disc bulging. Moderate facet arthropathy. Spinal canal and foramen are patent. L5-S1: Disc osteophyte complex with endplate ridging. Slight contact of the far exiting right L5 nerv e root laterally. Mild facet arthropathy. Spinal canal is patent. Mild left foraminal narrowing. Visualized pelvic bony structures: Normal. Paravertebral soft tissues: Normal. IMPRESSION: 1. Mild lumbar curve. No acute compression. No high-grade central canal stenosis. 2. Tiny right proximal foraminal protrusion L3-4 slightly contacts the proximal exiting right L3 ner ve root. 3. Right eccentric disc osteophyte ridging L5-S1 encroaches on the far exiting right L5 nerve root. 4. Moderate facet arthropathy L4-L5 and L5-S1.
== END 2022-11-24 14:21 | disposition home or self-care (01) ==
LOC: RAD 14:21
PROVIDERS: PCP Family Medicine; Visit Provider Anesthesiology Pain Medicine
DX: R53.1 Weakness (principal); M54.16 Radiculopathy, lumbar region; M54.40 Lumbago with sciatica, unspecified side; M25.78 Osteophyte, vertebrae; M47.817 Spondylosis without myelopathy or radiculopathy, lumbosacral region
CPT/HCPCS: 72148

== ENCOUNTER 2022-12-05 13:26 | Outpatient (CLI) | payer OTHER, SELFPAY ==
[2022-12-05 14:15] LABS: Add Urine Microscopic? NO; Charge for UA Resulting for Rev
[2022-12-05 14:16] LABS: Basophils % 0.4 %; Eosinophils # 0.1 10^3/uL (0.0-0.8); Eosinophils % 1.5 %; Hematocrit 40.4 % (36-47); Lymphocytes # 1.5 10^3/uL (0.8-4.8); Lymphocytes % 28.1 %; Mean Corpuscular HGB Conc 33.7 g/dL (30-55); Mean Corpuscular Hemoglobin 31.1 pg (27-33); Mean Corpuscular Volume 92.4 fl (85-98); Mean Platelet Volume 9.2 fL (7.4-10.4); Monocytes # 0.4 10^3/uL (0.2-0.9); Monocytes % 7.2 %; Neutrophils # 3.38 10^3/uL (1.8-7.7); Neutrophils % 62.6 %; Nucleated Red Blood Cells % 0 %; Platelet Count 246 10^3/cmm (157-399); Red Blood Count 4.37 10^6/uL (3.85-5.65); Red Cell Distribution Width 12.4 % (12.1-15.1)
[2022-12-05 14:18] LABS: Bilirubin Urine Neg (Negative); Blood Urine Neg (Negative); Glucose Urine UA Norm (Normal); Ketones Urine Negative (Negative); Leukocyte Esterase Urine Negative (Negative); Nitrate Urine Negative (Negative); Protein Urine Neg (Negative); Urine Appearance Clear (CLEAR); Urine Color Yellow (Yellow); Urobilinogen Urine Norm (Negative); pH Urine 6 (5-7)
[2022-12-05 14:33] LABS: Alanine Aminotransferase 14 U/L (0-33); Albumin Level 4.2 g/dL (3.5-5.2); Alkaline Phosphatase 86 U/L (35-105); Aspartate Amino Transferase 16 U/L (0-32); Blood Urea Nitrogen 8 mg/dL (6-20); Calcium 9.5 mg/dL (8.5-10.5); Carbon Dioxide 29 mmol/L (22-29); Chloride 99 mmol/L (98-107); Glomerular Filtration Rate 85.9 mL/min (90-130); Glucose 96 mg/dL (65-115); Osmolality Calculated 280 mOsm/kg (285-295); Sodium 136 mmol/L (136-145); Total Bilirubin 0.5 mg/dL (0.15-1.2); Total Protein 7.2 g/dL (6.6-8.7)
== END 2022-12-05 13:27 | disposition home or self-care (01) ==
PROVIDERS: PCP Family Medicine; Visit Provider Orthopaedic Surgery
DX: M54.50 Low back pain, unspecified (principal)
CPT/HCPCS: 80053; 81003; 85025

== ENCOUNTER 2022-12-23 06:54 | Day surgery (SDC) | payer OTHER, SELFPAY ==
[2022-12-22 11:47] VITALS: BMI 39.4
[2022-12-23] VITALS (12 sets, daily range): BP systolic 106–153; BP diastolic 79–105; PULSE 71–99; RESP 15–19; TEMP 36.2–36.7; O2SAT 92–99
--- NOTE | 2022-12-23 | XR_ITS ---
WS: [id number] Exam: XR lumbar spine 1V [id number] Date/Time of Exam: 12/23/2022 12:00 AM Reason For Exam: OR PIC, lumbar spine decompression, L3-4 Single anterior posterior C-arm image of the lower lumbar spine is submitted. Image was obtained for preoperative localization purposes.
[2022-12-23] MEDS: sodium chloride 0.9% 1,000 ML 30 ML IV (07:17)
[2022-12-23] MEDS: scopolamine 1.5 Patch 1 PATCH TRANSDERMA (07:18)
--- NOTE | 2022-12-23 07:25 | W.PM.OPSUD ---
Surgery/Procedure H&P Update DATE OF PROCEDURE: December 23, 2022 DATE H&P PERFORMED: 11/29/22 H&P UPDATE INFORMATION: I have reviewed H&P completed within last 30 days, I have examined patient prior to procedure and No changes to prior documentation PREOP DIAGNOSIS: Lumbar stenosis PLANNED PROCEDURE: Operation Date: 12/23/22 08:50 Proposed Procedures p Lumbar Spine Decompression/L3-4(Right) - Tk Bey DO
[2022-12-23] MEDS: ceFAZolin 2,000 MG in sodium chloride 0.9% (plus) 50 ML 100 MG IV (08:09)
[2022-12-23] MEDS: lidocaine-epi 1% 20 mL INJ 10 ML INJECTION (08:35)
--- NOTE | 2022-12-23 08:51 | ANES.PREANE2 ---
Pre-Anesthetic Assessment Height/Weight: Height 1.52 m Weight 91.626 kg Temp Pulse Resp BP Pulse Ox O2 Del Method 97.2 F L 77 16 106/92 99 Room Air 12/23/22 07:01 12/23/22 07:01 12/23/22 07:01 12/23/22 07:01 12/23/22 07:01 12/23/22 07:13 Preop Diagnosis: Lumbar stenosis Operation Date: 12/23/22 08:50 Proposed Procedures p Lumbar Spine Decompression/L3-4(Right) - Tk Bey, Familial anesthetic complications: none Was Beta Jacobo taken within 24 hours: N/A Was Clonidine taken within 24 hours: N/A Last intake: Intake Last Liquid Date 12/22/22 Last Liquid Time 17:00 Last Solid Date 12/22/22 Last Solid Time 17:00 Social No alcohol and No tobacco Exam alert, oriented x 3, clear to auscultation bilaterally and regular rate & rhythm Airway Submandibular: within normal limits Cervical ROM: within normal limits Mallampati: Class II Dentition: full GI Gastroesophageal Reflux Disease Metabolic Morbid Obesity and Thyroid Disease Musc/skel Lower Back Pain and Osteoarthritis/DJD SLE Neuropsych Anxiety, Cerebrovascular Accident, Dementia, Depression and Headache Anesthetic Plan ASA status: 3 Anesthesia: General Medications/Allergies Home Medications Medication Instructions Recorded Confirmed Last Taken Type ergocalciferol (vitamin D2) 1,250 1,250 mcg PO Q7D 09/27/22 12/22/22 12/17/22 History mcg (50,000 unit) capsule trazodone 100 mg tablet 100 mg PO BEDTIME #30 tabs 10/19/22 12/22/22 12/22/22 Rx pregabalin 150 mg capsule (Lyrica) 150 mg PO TID #90 caps 10/20/22 12/22/22 12/21/22 Rx pantoprazole 40 mg tablet,delayed 40 mg PO BID #60 tabs 10/25/22 12/22/22 12/22/22 Rx release sucralfate 1 gram tablet 1 g PO TID #90 tabs 10/25/22 12/22/22 12/22/22 Rx Standard Wheel Chair #1 ea 10/26/22 12/22/22 Unknown Rx docusate sodium 100 mg capsule 100 mg PO BID #14 caps 11/14/22 12/22/2212/21/23 Rx (Dulcolax Stool Softener (docusate)) lorazepam 1 mg tablet (Ativan) 1 mg PO Q8H PRN anxiety #90 tabs 11/24/22 12/22/22 12/22/22 Rx Allergies Allergy/AdvReac Type Severity Reaction Status Date / Time hydrocodone Allergy Mild ADR-Irritab Verified 12/23/22 07:04 le Current Medications Generic Name Dose Route Start Last Admin Trade Name Freq PRN Reason Stop Dose Admin Sodium Chloride 1,000 mls @ 30 mls/hr 12/23/22 07:15 12/23/22 07:17 Sodium Chloride 0.9% IV 12/24/22 07:14 30 mls/hr .Q24H TERRY Administration PFSH Anesthesia Medical History Anxiety COVID-19 (~09/2020) History of stroke (~01/2020) Lupus Panic attacks 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) PUD (peptic ulcer disease) Surgical History History of abdominoplasty History of History of hysterectomy History of laparoscopic cholecystectomy Family History Other CAD (coronary artery disease) Cancer Social History Smoking and tobacco status: never smoked Second hand smoke exposure: No Alcohol intake: never Substance/Drug Use: current Other substance/drug use details: has [facility] medical card Lives independently: Yes Marital status: service: No Current occupational status: employed Current occupation: [employer] Current gender identity: Female Special ashanti needs: No Agree to transfusion: Yes Data Anesthesia Cardiac Studies: No Data to Display
--- NOTE | 2022-12-23 09:03 | PM.OP ---
Operative Report Date of procedure: December 23, 2022 Pre-op diagnosis: Lumbar stenosis with neurogenic claudication Post-op diagnosis: same Procedure done: 1. L3-4 laminectomy with partial facetectomy Surgeon: Tk Bey DO Telephone Solicitor Supervisor: Veto Lobo Telephone Solicitor Supervisor: The it administrative assistant, JOSE Velazquez was needed for his expertise under the microscope. He was important and necessary throughout the procedure to complete in a safe and timely manner. He assisted with patient positioning prepping and draping tissue retraction suctioning of the operative field protection of the dural sac and tissue closure Estimated blood loss (mL): 5 Procedure: 1. L3-4 laminectomy with partial facetectomy Patient is brought to the operative suite. After undergoing anesthesia they are placed in the prone position. All areas of impingement are well padded. Patient is then prepped and draped in the normal sterile fashion. A skin incision is made over the L3-4 level. This is confirmed under c-arm guidance. A series of dilators are passed and the tubular retractor is docked on the L3 lamina. A bovie is used to clear the soft tissue off the lamina and the L 3/4 facet joint. A high speed janet is then used to perform the laminectomy and take down the medial aspect of the L 3/4 facet joint. A kerrison rongeure was then used to take down the remaining lamina and smooth the edge of the laminectomy up to the point where the ligamentum flavum attaches. Attention was then brought to the medial aspect of the facet joint. The remaining medial aspect of the superior and inferior aspect of the facet joint were taken down with the kerrison from the pedicle of L3 to L 4. The facet joint had significant hypertrophy. Attention was then brought to the Ligamentum Flavum. The ligament was taken down from the lamina of L3 to L4 and out medially to the remaining facet joint. The ligament was thick. The dura was then exposed. The dura was in good repair. The L3 nerve was then traced with a curette out the L3/4 foramen and found to be adequately decompressed. The L4 nerve was traced with a curette around the L4 pedicle. The lateral recess was opened with a kerrison helping to further decompress the L4 nerve. Wound is then irrigated copiously with saline and surgiflo is used to stop any bleeding. The tubular retractor is removed and the wound is closed with vicryl and monocryl suture. Glue is then used to protect the wound. A sterile dressing is then placed. Patient was then placed in the supine position and transferred to the PACU in stable condition.
[2022-12-23] MEDS: HYDROmorphone 1 mg/mL INJ 1 mL 0.5 MG IVP (10:28)
[2022-12-23] MEDS: oxyCODONE 5 mg IR Tab/Cap PO (10:33)
[2022-12-23] MEDS: ondansetron 2 mg/ML SDV 2 mL 4 MG IVP (10:39)
[2022-12-23] MEDS: ketorolac 30 mg/mL INJ IVP (10:55)
[2022-12-23] MEDS: LORazepam 2 mg/mL INJ 1 mL 1 MG IVP (11:00)
--- NOTE | 2022-12-23 12:51 | ANE.PACU2 ---
Inpatient post-anesthesia follow up: Airway intact: Yes Vital signs: Temperature 98 F Pulse Rate 71 Respiratory Rate 16 Blood Pressure 122/96 Pulse Oximetry 95 Oxygen Delivery Me thod Room Air Oxygen Flow Rate 6 Fraction of Inspir ed Oxygen Hydration adequate: Yes Nausea and vomiting: No Pain level: 2 Mental status: Baseline
== END 2022-12-23 11:45 | disposition home or self-care (01) ==
PROVIDERS: PCP Family Medicine; Visit Provider Orthopaedic Surgery
PROC: (CPT 63005; principal; 2022-12-23 08:50)
DX: M48.062 Spinal stenosis, lumbar region with neurogenic claudication (principal); K21.9 Gastro-esophageal reflux disease without esophagitis; E66.01 Morbid (severe) obesity due to excess calories; Z68.39 Body mass index [BMI] 39.0-39.9, adult; Z86.73 Personal history of transient ischemic attack (TIA), and cerebral infarction without residual deficits; F03.90 Unspecified dementia, unspecified severity, without behavioral disturbance, psychotic disturbance, mood disturbance, and anxiety; Z86.16 Personal history of COVID-19; Z87.11 Personal history of peptic ulcer disease
CPT/HCPCS: 63047; 72020; 76000; J0131; J0690; J1100; J1170; J1885; J2060; J2371; J2405; J2704; J2710; J3010; J3475; J3490; J7030

== ENCOUNTER 2023-11-29 17:01 | Emergency (ER) | payer OTHER, SELFPAY ==
[2023-11-29 17:03] VITALS: BP 156/97; PULSE 58; RESP 24; TEMP 36.2; O2SAT 100
--- NOTE | 2023-11-29 17:03 | CTR_ITS ---
PROCEDURE INFORMATION: Exam: CT Head Without Contrast Exam date and time: 11/29/2023 5:04 PM Age: 58 years old Clinical indication: Stroke-like symptoms; Other: Seizure, facial numbness; Additional info: Symptoms of acute stroke TECHNIQUE: Imaging protocol: Computed tomography of the head without contrast. Radiation optimization: All CT scans at this facility use at least one of these dose optimization techniques: automated exposure control; mA and/or kV adjustment per patient size (includes targeted exams where dose is matched to clinical indication); or iterative reconstruction. Other technique: STROKE PROTOCOL was implemented. COMPARISON: CT angio headneck* [id number] 10/25/2022 6:30 PM RADIATION DOSE METRICS: Total DLP (mGy-cm): 1140 FINDINGS: Brain: No acute infarct. No hemorrhage. Unremarkable white matter for age. No midline shift. Cerebral ventricles: No ventriculomegaly. Paranasal sinuses: No significant inflammation. No fluid levels. Mastoid air cells: Minimal bilateral mastoid effusions. Bones: No acute fracture. Soft tissues: Unremarkable. CT/CT head thrombolytic [id number] IMPRESSION: No acute intracranial abnormality. ASSESSMENT: ASPECTS ([place] Stroke Program Early CT Score) is 10.
--- NOTE | 2023-11-29 17:17 | ED_ITS ---
HPI - Seizure 2 General: Chief Complaint: Neuro Symptoms/Deficit Stated Complaint: Stroke alert, Seizures, Time Seen by Provider: 11/29/23 17:02 Source: patient and EMS Mode of arrival: EMS Limitations: no limitations History of Present Illness: HPI Narrative: 58-year-old female who has a history of seizures she states she states she has been having seizures every day for the last 3 months that she has had 5 today. EMS states they witnessed 1 where she shook for 10 seconds and woke up when she first got here she complained of facial droop that is now since resolved. She denies headache she is very anxious Associated symptoms: Deny chest pain, chills or fever(s) Related Data Previous Rx's Medication Instructions Recorded Standard Wheel Chair #1 ea 10/26/22 oxycodone 5 mg capsule 5 mg PO Q6H PRN pain 5 days #30 01/05/23 caps docusate sodium 100 mg capsule 100 mg PO BID #14 caps 03/15/23 (Dulcolax Stool Softener (docusate)) ergocalciferol (vitamin D2) 1,250 1,250 mcg PO Q7D #7 caps 05/16/23 mcg (50,000 unit) capsule promethazine-DM 6.25 mg-15 mg/5 mL 5 ml PO Q6H PRN cough #160 mL 06/26/23 oral syrup lorazepam 1 mg tablet (Ativan) 1 mg PO Q8H PRN anxiety #90 tabs 10/31/23 ondansetron HCl 4 mg tablet 4 mg PO Q8H #30 tabs 10/31/23 pantoprazole 40 mg tablet,delayed 40 mg PO BID #60 tabs 10/31/23 release pregabalin 150 mg capsule (Lyrica) 150 mg PO TID #90 caps 10/31/23 sucralfate 1 gram tablet 1 g PO TID #90 tabs 10/31/23 tizanidine 4 mg capsule 4 mg PO Q8H #30 caps 10/31/23 trazodone 100 mg tablet 100 mg PO BEDTIME #30 tabs 10/31/23 Allergies Allergy/AdvReac Type Severity Reaction Status Date / Time hydrocodone Allergy Mild ADR-Irritab Verified 11/29/23 15:19 le Review of Systems 2 Const: Denies: fever(s), chills, body aches or change in appetite ENMT: Denies: throat pain or dental pain Card: Denies: chest pain Resp: Denies: dyspnea GI: Denies: abdominal pain, nausea, vomiting or diarrhea Musc: Denies: neck pain or back pain Skin/Breast: Denies: rash Neuro: Reports: seizure-like activity; Denies: headache(s) PFSH ED 2 PFSH: Medical History PUD (peptic ulcer disease) Panic attacks Anxiety Lupus 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) History of stroke (~01/2020) COVID-19 (~09/2020) Surgical History S/P laparoscopic hernia repair History of laparoscopic cholecystectomy History of abdominoplasty History of hysterectomy History of Family History Other CAD (coronary artery disease) Cancer Social History Smoking and tobacco/nicotine status: never used tobacco/nicotine Second hand smoke exposure: No Alcohol intake: never Substance/Drug Use: current Other substance/drug use details: has [place] medical card Lives independently: Yes Marital status: service: No Current occupational status: employed Current occupation: [employer] Current gender identity: Female Special ashanti needs: No Agree to transfusion: Yes Course 2 Vital Signs: Vital signs: Vital Signs Temperature 97.2 F L 11/29/23 17:03 Pulse Rate 75 11/29/23 19:06 Respiratory Rate 24 H 11/29/23 17:03 Blood Pressure 122/89 11/29/23 19:06 Pulse Oximetry 97 11/29/23 19:06 MDM - Seizure MDM Narrative Medical decision making narrative: Patient presents after a possible seizure she has a history of functional seizures she feels much improved here head CT is normal she had no strokelike symptoms here she stable for discharge she is to take her meds follow-up with her neurologist she understands agrees to plan. Lab Data 11/29/23 17:26 11/29/23 17:26 Labs: Radiology Impressions Head CT 11/29/23 17:03 IMPRESSION: No acute intracranial abnormality. ASSESSMENT: ASPECTS ([place] Stroke Program Early CT Score) is 10. Laboratory Results WBC 6.78 10^3/uL (3.29-11.43) 11/29/23 17: RBC 4.66 10^6/uL (3.85-5.65) 11/29/23 17:26 Hgb 14.20 g/dL (11.27-16.99) 11/29/23 17: Hct 42.4 % (36-47) 11/29/23 17: MCV 91.0 fl (85-98) 11/29/23 17:26 MCH 30.5 pg (27-33) 11/29/23 17: MCHC 33.5 g/dL (30-55) 11/29/23 17: RDW 12.7 % (12.1-15.1) 11/29/23 17: Plt Count 256 10^3/cmm (157-399) 11/29/23 17: MPV 9.0 fL (7.4-10.4) 11/29/23 17: Neut % (Auto) 57.8 % 11/29/23 17: Lymph % (Auto) 33.8 % 11/29/23 17: Kendall % (Auto) 7.5 % 11/29/23 17: Eos % (Auto) 0.7 % 11/29/23 17: Baso % (Auto) 0.1 % 11/29/23 17: Neut # (Auto) 3.91 10^3/uL (1.8-7.7) 11/29/23 17: Lymph # (Auto) 2.3 10^3/uL (0.8-4.8) 11/29/23 17: Kendall # (Auto) 0.5 10^3/uL (0.2-0.9) 11/29/23: Eos # (Auto) 0.1 10^3/uL (0.0-0.8) 11/29/23 17: Baso # (Auto) 0.0 10^3/uL (0.0-0.1) 11/29/23 17: Nucleated RBC % (auto) 0 % 11/29/23 17: Nucleated RBCs # 0.0 /100WBC 11/29/23 17:26 PT 13.70 SECONDS (12.1-14.9) 11/29/23 17:26 INR 1.02 (0.8-1.2) 11/29/23 17:26 APTT 26.8 SECONDS (23.9-36.7) 11/29/23 17:26 Sodium 141 mmol/L (136-145) 11/29/23 17:26 Potassium 3.5 mmol/L (3.5-5.1) 11/29/23 17:26 Chloride 100 mmol/L (98-107) 11/29/23 17:26 Carbon Dioxide 27 mmol/L (22-29) 11/29/23 17:26 Anion Gap 17.5 (5-19) 11/29/23 17:26 BUN 8 mg/dL (6-20) 11/29/23 17:26 Creatinine 0.9 mg/dL (0.5-0.9) 11/29/23 17:26 GFR Calculation 64.1 mL/min (90-130) L 11/29/23 17:26 Glucose 99 mg/dL (65-115) 11/29/23 17:26 Calculated Osmolality 290 mOsm/kg (285-295) 11/29/23 17:26 Calcium 9.9 mg/dL (8.5-10.5) 11/29/23 17:26 Total Bilirubin 0.6 mg/dL (0.15-1.2) 11/29/23 17:26 AST 17 U/L (0-32) 11/29/23 17:26 ALT 18 U/L (0-33) 11/29/23 17:26 Alkaline Phosphatase 97 U/L (35-105) 11/29/23 17:26 Total Protein 8.1 g/dL (6.6-8.7) 11/29/23 17:26 Albumin 4.6 g/dL (3.5-5.2) 11/29/23 17:26 Globulin 3.5 g/dL (1.3-4.6) 11/29/23 17:26 All radiology interpretation(s) finalized by discharge EKG Data EKG 1: Attestation: I personally reviewed and interpreted this EKG as follows: EKG interpretation date: 11/29/23 EKG interpretation time: 17:58 Interpretation: sinus tanvir hr [address] or t wave abnormalities qrs 101 qtc 415 Discharge Plan Discharge Patient Disposition: Home Clinical Impression: Seizure Condition: Stable Prescriptions: No Action oxycodone 5 mg capsule 5 mg PO Q6H PRN (Reason: pain) 5 Days Qty: 30 0RF ondansetron HCl 4 mg tablet 4 mg PO Q8H Qty: 30 3RF trazodone 100 mg tablet 100 mg PO BEDTIME Qty: 30 2RF lorazepam [Ativan] 1 mg tablet 1 mg PO Q8H PRN (Reason: anxiety) Qty: 90 0RF pregabalin [Lyrica] 150 mg capsule 150 mg PO TID Qty: 90 2RF tizanidine 4 mg capsule 4 mg PO Q8H Qty: 30 2RF pantoprazole 40 mg tablet,delayed release (DR/EC) 40 mg PO BID Qty: 60 3RF sucralfate 1 gram tablet 1 g PO TID Qty: 90 2RF (DME) Standard Wheel Chair See Rx Instructions .Route .MEDSUPPLY Qty: 1 0RF Rx Instructions: As directed docusate sodium [Dulcolax Stool Softener (dss)] 100 mg capsule 100 mg PO BID Qty: 14 0RF ergocalciferol (vitamin D2) 1,250 mcg (50,000 unit) capsule 1,250 mcg PO Q7D Qty: 7 0RF promethazine-DM 6.25-15 mg/5 mL syrup 5 ml PO Q6H PRN (Reason: cough) Qty: 160 0RF Discharge Orders: Discharge ED (Routine); Ordered 11/29/23 Ordered By: Nadya Silver Referrals: Abbie Caballero MD [Primary Care Provider] - Discharge Diet: Advance as tolerated Discharge Activity: Resume usual activity Patient Instructions: Seizures Coding Level of Care Code ED Rip/Mould Operator for Alissa Cedillo
[2023-11-29] MEDS: LORazepam 2 mg/mL INJ 1 mL 1 MG IVP (17:31)
[2023-11-29 17:36] LABS: Basophils % 0.1 %; Eosinophils # 0.1 10^3/uL (0.0-0.8); Eosinophils % 0.7 %; Hematocrit 42.4 % (36-47); Lymphocytes # 2.3 10^3/uL (0.8-4.8); Lymphocytes % 33.8 %; Mean Corpuscular HGB Conc 33.5 g/dL (30-55); Mean Corpuscular Hemoglobin 30.5 pg (27-33); Monocytes # 0.5 10^3/uL (0.2-0.9); Monocytes % 7.5 %; Neutrophils # 3.91 10^3/uL (1.8-7.7); Neutrophils % 57.8 %; Nucleated Red Blood Cells % 0 %; Platelet Count 256 10^3/cmm (157-399); Red Blood Count 4.66 10^6/uL (3.85-5.65); Red Cell Distribution Width 12.7 % (12.1-15.1); White Blood Count 6.78 10^3/uL (3.29-11.43)
[2023-11-29 17:48] LABS: INR 1.02 (0.8-1.2); Partial Thromboplastin Time 26.8 SECONDS (23.9-36.7)
[2023-11-29 17:53] LABS: Alanine Aminotransferase 18 U/L (0-33); Albumin Level 4.6 g/dL (3.5-5.2); Alkaline Phosphatase 97 U/L (35-105); Anion Gap 17.5 (5-19); Aspartate Amino Transferase 17 U/L (0-32); Blood Urea Nitrogen 8 mg/dL (6-20); Calcium 9.9 mg/dL (8.5-10.5); Carbon Dioxide 27 mmol/L (22-29); Chloride 100 mmol/L (98-107); Creatinine Clr Calc Pharmacy 73.5378; Globulin 3.5 g/dL (1.3-4.6); Glomerular Filtration Rate 64.1 mL/min (90-130); Glucose 99 mg/dL (65-115); Osmolality Calculated 290 mOsm/kg (285-295); Potassium 3.5 mmol/L (3.5-5.1); Sodium 141 mmol/L (136-145); Total Bilirubin 0.6 mg/dL (0.15-1.2); Total Protein 8.1 g/dL (6.6-8.7)
--- NOTE | 2023-11-29 17:58 | ECG_ITS ---
[facility] Test Date: 2023-11-29 Pat Name: Licha Traylor Department: Room: Gender: Female Epidemiology Intern: : 1965 Requested By: Nadya Silver Order Number: [id number] Reading MD: Lori Segovia M.D. Measurements Intervals [place] Rate: 58 P: 50 SC: 161 QRS: 2 QRSD: 101 T: 44 QT: 418 QTc: 413 Interpretive Statements SINUS BRADYCARDIA Compared to ECG 10/25/2022 18:51:54 T-wave abnormality no longer present Electronically Signed On 11-30-2023 0:21:03 CDT by Lori Segovia M.D. [id number]
[2023-11-29] MEDS: metoclopramide 5 mg/mL SDV 2 mL 10 MG IVP (18:32)
[2023-11-29] MEDS: diphenhydrAMINE 50 mg/mL SDV 1mL IVP (18:34)
[2023-11-29 18:38] VITALS: BP 132/68; PULSE 90; O2SAT 96
[2023-11-29 19:06] VITALS: BP 122/89; PULSE 75; O2SAT 97
== END 2023-11-29 19:07 | disposition home or self-care (01) ==
PROVIDERS: Emergency Provider Emergency Medicine; PCP Family Medicine
DX: R56.9 Unspecified convulsions (principal); R00.1 Bradycardia, unspecified; M32.9 Systemic lupus erythematosus, unspecified; Z86.73 Personal history of transient ischemic attack (TIA), and cerebral infarction without residual deficits
CPT/HCPCS: 36415; 70450; 80053; 85025; 85610; 85730; 93005; 96374; 96375; 99285; J1200; J2060; J2765